=== PATIENT | male | born 1970 | race Caucasian/White ===

== ENCOUNTER 2016-12-02 12:58 | Emergency (ER) | payer MEDICARE ==
[~2016-12-02] VITALS: Ht 175.3 cm; Wt 133.8 kg
[~2016-12-02 12:58] MED LIST: AZIT250T81 PO; AZTH250C PO; BENZ200C25 PO; CPR500T PO; CRESTOR40 MG PO; FENO145T2 PO; GEMF600T3; HALO5TAB17; HALO5TAB17 PO; HYDR-707 PO; LISI10TA; LNS30CCR PO; METF500T8 PO; MTF500T; NF-ESOM40C PO; OMEP-10; ONDA4TAB11 PO; ONDN4T PO; PRD20T PO; PRM25T PO; RISP3TAB17 PO; ROSU20TA14 PO; percocet PO
--- OUTSIDE RECORDS SUMMARY | 2016-12-02 13:04 | XMS REPORT | Continuity of Care Document ---
Author Author [facility] Organization [facility] Address Unknown Phone Unavailable Allergies Active Description Code Type Severity Reaction Onset Reported/Identified Relationship to Patient Clinical Status Yes NKANo Known Allergies NKA Miscellaneous Allergy Mild N/A 01/08/2010 Medications Problems Date Dx Coded Attending Type Code Diagnosis Diagnosed By 10/03/2014 PEPE WELCH, GLENROY Hodge Ot 490 10/03/2014 GLENROY CANTU MD Ot 786.05 Procedures Results Encounters ACCT No. Visit Date/Time Discharge Status Pt. Type Provider Facility Loc./Unit Complaint [id number] 10/03/2014 21:56:00 2013 23:26:00 DIS Emergency GLENROY CANTU MD [facility] ER [id number] 01/07/2014 02:21:00 2013 03:29:00 DIS Emergency [id number] 05/28/2013 13:51:00 2012 14:55:00 DIS Emergency
--- NOTE | 2016-12-02 14:01 | ED Lower Extremity ---
General Chief Complaint: Lower Extremity Stated Complaint: R ANKLE INJ Nursing Triage Note: AMB TO ROOM REPORTS GOT UP OUT OF CHAIR ON SUNDAY NIGHT AND FOOT WAS ASLEEP AND TWISED ANKLE. Nursing Sepsis Screen: No Definite Risk Source: patient Exam Limitations: no limitations History of Present Illness Time seen by provider: 14:00 Initial Comments To ER with reports of right lateral ankle pain. This began last night after he was on the bed helping his do something. He then stepped down inverting the right ankle. Pain is over the lateral malleolus. No other injuries. He's been weightbearing since the event. Onset: just prior to arrival Severity: moderate Pain/Injury Location: right ankle Method of Injury: twisted Modifying Factors: Worse With Movement Allergies and Home Medications Allergies Coded Allergies: SILVANAANo Known Allergies (Unverified Allergy, Mild, 01/08/10) Home Medications Azithromycin 250 Mg Tablet 4Days 250 MG PO DAILY Prescribed by: GLENROY BALDERAS on 10/03/14 2323 Benzonatate 200 Mg Capsule #20 1 EACH PO TID PRN PRN COUGH Prescribed by: GLENROY BALDERAS on 10/03/14 2316 Esomeprazole Mag Trihydrate 40 Mg Capsule.dr 1 CAP PO DAILY (Reported) Haloperidol 5 Mg Tab 10 MG PO HS (Reported) Prednisone 20 Mg Tab #5 20 MG PO DAILY Prescribed by: GLENROY BALDERAS on 10/03/14 2314 Risperidone 3 Mg Tablet 3 MG PO BID (Reported) Rosuvastatin Calcium 40 Mg Tablet 40 MG PO HS (Reported) Constitutional: see HPI EENTM: see HPI Respiratory: no symptoms reported Cardiovascular: no symptoms reported Genitourinary: no symptoms reported Musculoskeletal: no symptoms reported Skin: no symptoms reported Psychiatric/Neurological: No Symptoms Reported Past Pukitzm-Hvbhsm-Aslkhl Hx Patient Social History Alcohol Use: Denies Use Recreational Drug Use: No (QUIT SMOKING 2 MOS AGO) Smoking Status: Former Smoker Recent Foreign Travel: No Contact w/Someone Who Travel: No Recent Infectious Disease Expo: No Recent Hopitalizations: Yes Immunizations Up To Date Date of Pneumonia Vaccine: Jul 15, 2011 Date of Influenza Vaccine: Jul 15, 2011 Surgeries HX Surgeries: Yes Surgeries: Gallbladder Respiratory Hx Respiratory Disorders: No Cardiovascular Hx Cardiac Disorders: Yes Cardiac Disorders: High Cholesterol Neurological Hx Neurological Disorders: No Reproductive System Hx Reproductive Disorders: No Sexually Transmitted Disease: No Genitourinary Hx Genitourinary Disorders: No Gastrointestinal Hx Gastrointestinal Disorders: No Gastrointestinal Disorders: Pancreatitis, Gall Bladder Disease Musculoskeletal Hx Musculoskeletal Disorders: No Endocrine Hx Endocrine Disorders: No HEENT HX ENT Disorders: No Cancer Hx Cancer: No Psychosocial Hx Psychiatric Problems: Yes Behavioral Health Disorders: Schizophrenia Integumentary HX Skin/Integumentary Disorder: No Blood Transfusions Hx Blood Disorders: No Physical Exam Vital Signs Vital Sign - Last 12Hours 12/02/16 13:12 Temp 98.9 B/P 138/70 Pulse Ox 96 O2 Delivery Room Air Capillary Refill : Less Than 3 Seconds General Appearance: WD/WN no apparent distress HEENT: PERRL/EOMI normal ENT inspection Neck: non-tender full range of motion Respiratory: no respiratory distress no accessory muscle use Gastrointestinal: normal bowel sounds non tender soft Hips: bilateral hip non-tender, bilateral hip normal inspection, bilateral hip normal range of motion Legs: bilateral leg non-tender, bilateral leg normal inspection, bilateral leg normal range of motion Knees: bilateral knee non-tender, bilateral knee normal inspection, bilateral knee normal range of motion Ankles: right ankle soft tissue tenderness, right ankle swelling, right ankle other (distal sensation is intact. Capillary refill of the toes is 3seconds) Neurologic/Tendon: normal sensation normal motor functions Neurologic/Psychiatric: alert normal mood/affect oriented x 3 Skin: normal color warm/dry Progress/Results/Core Measures Results/Orders Vital Signs/I&O Vital Sign - Last 12Hours 12/02/16 13:12 Temp 98.9 B/P 138/70 Pulse Ox 96 O2 Delivery Room Air Blood Pressure Mean: 92 Diagnostic Imaging Diagonstic Imaging: Xray Comments NAME: MARIE BRADFORD Delroy [facility] REC#: [id number] PT STATUS: REG ER : 1970 PHYSICIAN: MONIK DUCKWORTH MD ADMIT DATE: 12/02/16/ER Draft Date of Exam:12/02/16 ANKLE, RIGHT, 3 VIEWS EXAMINATION: Right ankle INDICATION: Ankle pain 3 views were obtained. There is a small 4 MM calcific density in the soft tissues adjacent to the inferior margin of the lateral malleolus of the distal fibula. There is soft tissue edema in this region and I suspect that this calcific density does represent a small acute avulsion fracture. No other fracture or acute bony abnormality is identified. The ankle mortise is not widened and the talar dome is smooth. IMPRESSION: 1. The findings do suggest a small acute avulsion fracture from the inferior margin of the lateral malleolus. There is also associated soft tissue edema in this area. 2. There is no acute bony abnormality noted otherwise. Dictated on workstation # [id number] Dict: 12/02/16 1355 Trans: 12/02/16 1401 [facility] [id number] Interpreted by: LAMIN SEGURA MD Electronically signed by: Departure Impression Impression: Primary Impression: Avulsion fracture of ankle Qualified Code: S82.891A - Other fracture of right lower leg, initial encounter for closed fracture Disposition: HOME, SELF-CARE Condition: Stable Departure-Patient Inst. Decision time for Depature: 14:03 Referrals: PAULA PEREA MD, RICHARD A DO (PCP/Family) Primary Care Physician CORI L[address] JONATHAN MD IPSEN,LALITO NUNES,PANKAJ LEYVA MD,MARIA GUADALUPE Owen MD Patient Instructions: Ankle Sprain Add. Discharge Instructions: 1. Return to ER for any concerns 2. Keep foot elevated as much as possible for the next 24-48 hours as this will help with the swelling 3. Any time that you're up moving around except when you're in the shower he should have the walking boot on. All discharge instructions reviewed with patient and/or family. Voiced understanding. Scripts Hydrocodone/Acetaminophen ([place]ons 5-325 Tablet)1 Each Tablet1 Each PO Q6H #10 TAB Prov:WALTER DIAZ APRN 12/02/16 WALTER DIAZ APRN Dec 02, 2016 14:01
[2016-12-02] MEDS ORDERED: HYDR-757 PO (14:04)
[2016-12-02 14:40] VITALS: BP 138/70
== END 2016-12-02 14:38 | disposition home or self-care (01) ==
LOC: EDUNIT# 12:58 → ER 13:00
DX: S82.61XA Displaced fracture of lateral malleolus of right fibula, initial encounter for closed fracture (principal); X50.9XXA Other and unspecified overexertion or strenuous movements or postures, initial encounter; Y92.013 Bedroom of single-family (private) house as the place of occurrence of the external cause; Y99.8 Other external cause status
CPT/HCPCS: 73610; 99283

== ENCOUNTER 2019-05-28 00:41 | Emergency (ER) | payer MEDICARE ==
[~2019-05-28] VITALS: Ht 175.3 cm; Wt 98.4 kg
[~2019-05-28 00:41] MED LIST changes: +HYDR-4226 PO
[2019-05-28] MEDS ORDERED: IBUPROFEN 800 MG (MOTRIN) TAB PO ONE (02:15)
[2019-05-28] MEDS ORDERED: LIDOCAINE 2% VISCOUS 15 ML UDC PO ONE (02:15)
[2019-05-28] MEDS ORDERED: AMOX500C2 PO (02:16)
--- NOTE | 2019-05-28 02:17 | ED EENT ---
History of Present Illness General Stated Complaint: TOOTH PAIN Source: patient Exam Limitations: no limitations History of Present Illness Date Seen by Provider: May 28, 2019 Time Seen by Provider: 02:02 Initial Comments Patient is a very pleasant gentleman who presents by private conveyance with chief complaint of some acute pain in his left lower molars. He says this happens about every 6 months and he'll go to Dr. Elise and get some antibiotics which will make it feel better. He has not tried any topical creams gels, Tylenol or Motrin. He would like some ibuprofen. He uses INTTRA. No history of heart disease. No discharge or swelling in the jaw. No fevers or nausea. Allergies and Home Medications Allergies Coded Allergies: Amy Known Allergies (Unverified Allergy, Mild, 01/08/10) Home Medications Azithromycin 250 Mg Tablet, 250 MG PO DAILY Prescribed by: GLENROY BALDERAS on 10/03/14 2323 Benzonatate 200 Mg Capsule, 1 EACH PO TID PRN for COUGH Prescribed by: GLENROY BALDERAS on 10/03/14 2316 Esomeprazole Mag Trihydrate 40 Mg Capsule.dr, 1 CAP PO DAILY, (Reported) Haloperidol 5 Mg Tab, 10 MG PO HS, (Reported) Hydrocodone/Acetaminophen 1 Each Tablet, 1 EACH PO Q6H Prescribed by: WALTER DIAZ on 12/02/16 1404 Prednisone 20 Mg Tab, 20 MG PO DAILY Prescribed by: GLENROY BALDERAS on 10/03/14 2314 Risperidone 3 Mg Tablet, 3 MG PO BID, (Reported) Rosuvastatin Calcium 40 Mg Tablet, 40 MG PO HS, (Reported) Patient Home Medication List Home Medication List Reviewed: Yes Review of Systems Review of Systems Constitutional: No chills, No diaphoresis Eyes: Denies Blindness, Denies Blurred Vision Ears: Denies Dizziness, Denies Pain Nose: denies clots, denies congestion Mouth: see HPI, pain; denies swelling, denies bloody discharge, denies purulent discharge Past Tfusatk-Sjvzdo-Rqeuvu Hx Patient Social History Alcohol Use: Denies Use Recreational Drug Use: No Smoking Status: Current Everyday Smoker Recent Foreign Travel: No Contact w/Someone Who Travel: No Recent Hopitalizations: Yes Immunizations Up To Date Date of Pneumonia Vaccine: Jul 15, 2011 Date of Influenza Vaccine: Jul 15, 2011 Past Medical History Gallbladder High Cholesterol Reproductive Disorders: No Sexually Transmitted Disease: No Pancreatitis, Gall Bladder Disease Schizophrenia Physical Exam Height, Weight, BMI Height: 5'9" Weight: 295lbs. oz. 133.605777zz; BMI Method:Stated General Appearance: WD/WN, no apparent distress Eyes: bilateral eye normal inspection, bilateral eye PERRL, bilateral eye EOMI Ears: bilateral ear auricle normal, bilateral ear canal normal Nose: normal inspection; No active bleeding Mouth/Throat: dental tenderness, other (Advanced dental caries especially in the molars bilaterally. No erythema or swelling or fluctuance palpable. Tenderness over the left lower molars.) Neck: non-tender, full range of motion, supple, normal inspection Progress/Results/Core Measures Progress Progress Note : Time: 02:14 Progress Note Topical viscous lidocaine, offered him ibuprofen or Toradol shows ibuprofen. We'll put him on amoxicillin with follow-up with dentistry. Departure Impression Primary Impression: Pain due to dental caries Disposition: HOME, SELF-CARE Condition: Stable Departure-Patient Inst. Decision time for Depature: 02:14 Referrals: BHUPENRDA ELISE DO (PCP/Family) Primary Care Physician Patient Instructions: Tooth Decay, Adult (DC), Dental Pain Add. Discharge Instructions: Plan to follow up with a dentist. 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 Usually expect to see improvement in 3 days. Use the Orajel or viscous lidocaine provided applied directly over the tooth every 2-4 hours as needed for pain. Heating pads applied to the job can be helpful. Tylenol 1000 mg every 8 hours as needed for pain. Ibuprofen 800 mg every 8 hours as needed for pain. Scripts Amoxicillin (Amoxicillin) 500 Mg Capsule 500 MG PO TID for 7 Days, #21 CAP 0 Refills Prov: MURPHY TODD 05/28/19 MURPHY TODD May 28, 2019 02:17
[2019-05-28 02:25] VITALS: BP 122/79
== END 2019-05-28 02:35 | disposition home or self-care (01) ==
LOC: EDUNIT# 00:41 → ER 00:45
DX: K02.9 Dental caries, unspecified (principal); E78.00 Pure hypercholesterolemia, unspecified; F20.9 Schizophrenia, unspecified; F17.200 Nicotine dependence, unspecified, uncomplicated; Z79.52 Long term (current) use of systemic steroids
CPT/HCPCS: 99283

== ENCOUNTER 2019-08-21 18:58 | Emergency (ER) | payer MEDICARE ==
[~2019-08-21] VITALS: Ht 175 cm; Wt 98.6 kg
[~2019-08-21 18:58] MED LIST changes: +AMOX500C2 PO
[2019-08-21 19:37] LABS: BASOPHILS # (AUTO) 0.1 10^3/uL (0.0-0.1); BASOPHILS % (AUTO) 1 % (0-10); EOSINOPHILS # (AUTO) 0.1 10^3/uL (0.0-0.3); EOSINOPHILS % (AUTO) 2 % (0-10); HEMATOCRIT 43 % (40-54); HEMOGLOBIN 14.9 G/DL (13.3-17.7); LYMPHOCYTES # (AUTO) 2.5 X 10^3 (1.0-4.0); LYMPHOCYTES % (AUTO) 29 % (12-44); MEAN CORPUSCULAR HEMOGLOBIN 34 PG (25-34); MEAN CORPUSCULAR HGB CONC 35 G/DL (32-36); MEAN CORPUSCULAR VOLUME 98 FL (80-99); MEAN PLATELET VOLUME 9.2 FL (7.4-10.4); MONOCYTES % (AUTO) 12 % (0-12); NEUTROPHILS # (AUTO) 4.9 X 10^3 (1.8-7.8); NEUTROPHILS % (AUTO) 57 % (42-75); PLATELET COUNT 166 10^3/uL (130-400); RED CELL DISTRIBUTION WIDTH 14.4 % (10.0-14.5); WHITE BLOOD COUNT 8.6 10^3/uL (4.3-11.0)
[2019-08-21 19:38] LABS: BILIRUBIN,URINE NEGATIVE (NEGATIVE); CLARITY,URINE CLEAR; COLOR,URINE YELLOW; GLUCOSE, URINE (UA) NEGATIVE (NEGATIVE); KETONES,URINE NEGATIVE (NEGATIVE); LEUKOCYTE ESTERASE ,URINE NEGATIVE (NEGATIVE); NITRITE,URINE NEGATIVE (NEGATIVE); PROTEIN,URINE NEGATIVE (NEGATIVE)
--- NOTE | 2019-08-21 19:39 | ED Abdominal Pain ---
General Chief Complaint: Abdominal/GI Problems Stated Complaint: L SIDE ABD PAIN Nursing Triage Note: Pt ambulates to RM 5 with c/o LLQ abd pain, intermittent x 2 days. Pt states his last BM was 2 days ago. Pt reports no new med changes besides taking PNC x 2 days for a tooth infection. Pt denies any N/V or any changes in appetite. Pt states he hasn't taken anything for pain or constipation. 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 ELISE FOR A DENTAL INFECTION--HAS NOT ATTEMPTED TO SEE DENTIST. PCP: DR. ELISE Allergies and Home Medications Allergies Coded Allergies: Amy Known Allergies (Unverified Allergy, Mild, 01/08/10) Home Medications Amoxicillin 500 Mg Capsule, 500 MG PO TID Prescribed by: MURPHY TODD on 05/28/19 0216 Azithromycin 250 Mg Tablet, 250 MG PO DAILY Prescribed by: GLENROY BALDERAS on 10/03/14 2323 Benzonatate 200 Mg Capsule, 1 EACH PO TID PRN for COUGH Prescribed by: GLENROY BALDERAS on 10/03/14 2316 Esomeprazole Mag Trihydrate 40 Mg Capsule., 1 CAP PO DAILY, (Reported) Haloperidol 5 Mg Tab, 10 MG PO HS, (Reported) Hydrocodone/Acetaminophen 1 Each Tablet, 1 EACH PO Q6H Prescribed by: WALTER DIAZ on 12/02/16 1404 Prednisone 20 Mg Tab, 20 MG PO DAILY Prescribed by: GLENROY BALDERAS on 10/03/14 2314 Risperidone 3 Mg Tablet, 3 MG PO BID, (Reported) Rosuvastatin Calcium 40 Mg Tablet, 40 MG PO HS, (Reported) Patient Home Medication List Home Medication List Reviewed: Yes Review of Systems Review of Systems Constitutional: no symptoms reported EENTM: See HPI Respiratory: No Symptoms Reported Cardiovascular: No Symptoms Reported Gastrointestinal: See HPI, Abdominal Pain, Constipated; Denies Diarrhea, Denies Nausea, Denies Poor Appetite, Denies Poor Fluid Intake, Denies Vomiting Genitourinary: No Symptoms Reported Musculoskeletal: no symptoms reported; No back pain Skin: no symptoms reported Psychiatric/Neurological: No Symptoms Reported Endocrine: No Symptoms Reported Hematologic/Lymphatic: No Symptoms Reported Past Sznsrhu-Hsyfry-Nafaal Hx Patient Social History Alcohol Use: Denies Use Recreational Drug Use: No Smoking Status: Current Everyday Smoker (1 PPD) Type Used: Cigarettes Recent Foreign Travel: No Contact w/Someone Who Travel: No Recent Infectious Disease Expo: No Recent Hopitalizations: No Physical Abuse: No Sexual Abuse: No Mistreated: No Fear: No Immunizations Up To Date Date of Pneumonia Vaccine: Jul 15, 2011 Date of Influenza Vaccine: Jul 15, 2011 Past Medical History Surgeries: Yes Gallbladder, Tonsillectomy Respiratory: No Cardiac: Yes High Cholesterol Neurological: No Reproductive Disorders: No Sexually Transmitted Disease: No Genitourinary: No Gastrointestinal: Yes (S/P WICHO) Pancreatitis, Gall Bladder Disease Musculoskeletal: No Endocrine: No HEENT: Yes (CHRONIC DENTAL PROBLEMS) Cancer: No Psychosocial: Yes Schizophrenia Integumentary: No Blood Disorders: No Physical Exam Vital Signs Vital Signs - First Documented 08/21/19 19:12 Temp 36.7 Pulse 91 Resp 17 B/P (MAP) 125/84 (98) Pulse Ox 99 O2 Delivery Room Air Capillary Refill : Less Than 3 Seconds Height/Weight/BMI Height: 5'9" Weight: 217lbs. oz. 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, no motor/sensory deficits, alert, normal mood/affect, oriented x 3, other (APPEARS TO BE SOMEWHAT MENTALLY CHALLENGED) Skin: normal color, warm/dry; No rash Progress/Results/Core Measures Results/Orders Lab Results Laboratory Tests Test 08/21/19 19:25 08/21/19 19:30 Range/Units Urine Color YELLOW Urine Clarity CLEAR Urine pH 6.0 5-9 Urine Specific [place] 1.015 L 1.016-1.022 Urine Protein NEGATIVE NEGATIVE Urine Glucose (UA) NEGATIVE NEGATIVE Urine Ketones NEGATIVE NEGATIVE Urine Nitrite NEGATIVE NEGATIVE Urine Bilirubin NEGATIVE NEGATIVE Urine Urobilinogen 1.0 < = 1.0 MG/DL Urine Leukocyte Esterase NEGATIVE NEGATIVE Urine RBC (Auto) NEGATIVE NEGATIVE Urine RBC NONE /HPF Urine WBC NONE /HPF Urine Squamous Epithelial Cells RARE /HPF Urine Crystals NONE /LPF Urine Bacteria NEGATIVE /HPF Urine Casts NONE /LPF Urine Mucus NEGATIVE /LPF Urine Culture Indicated NO White Blood Count 8.6 4.3-11.0 10^3/uL Red Blood Count 4.35 4.35-5.85 10^6/uL Hemoglobin 14.9 13.3-17.7 G/DL Hematocrit 43 40-54 % Mean Corpuscular Volume 98 80-99 FL Mean Corpuscular Hemoglobin 34 25-34 PG Mean Corpuscular Hemoglobin Concent 35 32-36 G/DL Red Cell Distribution Width 14.4 10.0-14.5 % Platelet Count 166 130-400 10^3/uL Mean Platelet Volume 9.2 7.4-10.4 FL Neutrophils (%) (Auto) 57 42-75 % Lymphocytes (%) (Auto) 29 12-44 % Monocytes (%) (Auto) 12 0-12 % Eosinophils (%) (Auto) 2 0-10 % Basophils (%) (Auto) 1 0-10 % Neutrophils # (Auto) 4.9 1.8-7.8 X 10^3 Lymphocytes # (Auto) 2.5 1.0-4.0 X 10^3 Monocytes # (Auto) 1.0 0.0-1.0 X 10^3 Eosinophils # (Auto) 0.1 0.0-0.3 10^3/uL Basophils # (Auto) 0.1 0.0-0.1 10^3/uL Sodium Level 138 135-145 MMOL/L Potassium Level 3.7 3.6-5.0 MMOL/L Chloride Level 103 98-107 MMOL/L Carbon Dioxide Level 22 21-32 MMOL/L Anion Gap 13 5-14 MMOL/L Blood Urea Nitrogen 6 L 7-18 MG/DL Creatinine 1.09 0.60-1.30 MG/DL Estimat Glomerular Filtration Rate > 60 BUN/Creatinine Ratio 6 Glucose Level 106 H 70-105 MG/DL Calcium Level 9.6 8.5-10.1 MG/DL Corrected Calcium 8.5-10.1 MG/DL Total Bilirubin 0.7 0.1-1.0 MG/DL Aspartate Amino Transf (AST/SGOT) 10 5-34 U/L Alanine Aminotransferase (ALT/SGPT) 14 0-55 U/L Alkaline Phosphatase 83 40-136 U/L Total Protein 8.0 6.4-8.2 GM/DL Albumin 4.7 H 3.2-4.5 GM/DL Amylase Level 117 25-125 U/L Lipase 33 8-78 U/L My Orders Orders - GONZALO VANEGAS DO Ed Iv/Invasive Line Start (08/21/19 19:27) Amylase (08/21/19 19:27) Cbc With Automated Diff (08/21/19:) Comprehensive Metabolic Panel (08/21/19 19:) Lipase (08/21/19 19:) Ua Culture If Indicated (08/21/19:) Ketorolac Injection (Toradol Injection) (08/21/19 20:02) Ed Iv/Invasive Line Start (08/21/19 20:02) Lactated Ringers (Lr 1000 Ml Iv Solution (08/21/19 20:02) Ct Abdomen/Pelvis W (08/21/19 20:02) Acute Abd Series (08/21/19 20:02) Iohexol Injection (Omnipaque 350 Mg/Ml 1 (08/21/19 20:15) Received Contrast (Hold Metformin- Contr (08/21/19 20:15) Sodium Chloride Flush (Catheter Flush Sy (08/21/19 20:15) Ns (Ivpb) (Sodium Chloride 0.9% Ivpb Bag (08/21/19 20:15) Medications Given in ED Current Medications Medications Dose Ordered Sig/Vj Route Start Time Stop Time Status Last Admin Dose Admin Iohexol 100 ml ONCE ONCE IV 08/21/19 20:15 08/21/19 20:16 DC 08/21/19 20:26 100 ML Lactated Ringer's 1,000 ml @ 0 mls/hr Q0M ONCE IV 08/21/19 20:02 08/21/19 20:04 DC 08/21/19 20:40 0 MLS/HR Sodium Chloride 10 ml NEEDED PRN IV 08/21/19 20:15 08/21/19 20:26 10 ML Sodium Chloride 100 ml ONCE ONCE IV 08/21/19 20:15 08/21/19 20:16 DC 08/21/19 20:26 80 ML Vital Signs/I&O 08/21/19 19:12 Temp 36.7 Pulse 91 Resp 17 B/P (MAP) 125/84 (98) Pulse Ox 99 O2 Delivery Room Air Blood Pressure Mean: 98 POS Progress Progress Note : Progress Note GIVEN IV FLUIDS AND TORADOL--STATES HE FEELS ALOT BETTER Diagnostic Imaging Comments ABDOMEN XRAYS--NO ACUTE PROCESS CT ABDOMEN/PELVIS--NO ACUTE PROCESS PER RADIOLOGIST REPORTS AT 3 Reviewed: Reviewed by Me Departure Impression Primary Impression: RLQ abdominal pain Additional Impression: Constipation Disposition: 01 HOME, SELF-CARE Condition: Stable Departure-Patient Inst. Referrals: BHUPENDRA ELISE DO (PCP/Family) Primary Care Physician Patient Instructions: Acute Abdomen (Belly Pain), Adult (DC), Constipation, Adriel lt (DC) Add. Discharge Instructions: CLEAR LIQUIDS--WATER, BROTH, JELLO, GATORADE NO FOOD UNTIL YOUR PAIN IS GONE AND YOU HAVE HAD A BM TAKE MIRALAX EVERY 4 HOURS UNTIL YOU HAVE A BM FOLLOW UP WITH DR. ELISE IN 2-3 DAYS IF NO BETTER, RETURN TO ER IF WORSE All discharge instructions reviewed with patient and/or family. Voiced understanding. Scripts Ketorolac Tromethamine (Ketorolac Tromethamine) 10 Mg Tablet 10 MG PO Q6H for Pain, #15 TAB Prov: GONZALO VANEGAS DO 08/21/19 Hyoscyamine Sulfate (Levsin-Sl) 0.125 Mg Tab.subl 1-2 TAB SL Q4H for Abdominal Pain, #10 TAB Prov: GONZALO VANEGAS DO 08/21/19 GONZALO VANEGAS DO Aug 21, 2019 19:38 POS
[2019-08-21 19:46] LABS: BACTERIA,URINE NEGATIVE /HPF; SQUAMOUS EPITHELIAL CELL,UR RARE /HPF
[2019-08-21 19:57] LABS: ALANINE AMINOTRANSFERASE 14 U/L (0-55); ALKALINE PHOSPHATASE 83 U/L (40-136); BILIRUBIN,TOTAL 0.7 MG/DL (0.1-1.0); BUN/CREATININE RATIO 6; CALCIUM 9.6 MG/DL (8.5-10.1); CARBON DIOXIDE 22 MMOL/L (21-32); CREATININE SERUM 1.09 MG/DL (0.60-1.30); GFR ESTIMATED > 60; GLUCOSE 106 MG/DL (70-105)
[2019-08-21 19:58] LABS: ALBUMIN 4.7 GM/DL (3.2-4.5); AMYLASE 117 U/L (25-125); LIPASE 33 U/L (8-78)
[2019-08-21] MEDS ORDERED: LACTATED RINGERS 1,000 ML IV ONE (20:02)
[2019-08-21] MEDS ORDERED: KETOROLAC 30 MG/ML VIAL IVP STA (20:02)
[2019-08-21] MEDS ORDERED: CATHETER FLUSH 10 ML SYR IV PRN (20:15)
[2019-08-21] MEDS ORDERED: HOLD METFORMIN - RECEIVED CONTRAST 20 ML VIAL IV SCH (20:15)
[2019-08-21] MEDS ORDERED: IOHEXOL 350 MG/ML 100 ML (OMNIPAQUE 350) VIAL IV ONE (20:15)
[2019-08-21] MEDS ORDERED: NS 100 ML (IVPB) BAG IV ONE (20:15)
[2019-08-21 20:25] LABS: CHLORIDE 103 MMOL/L (98-107); POTASSIUM 3.7 MMOL/L (3.6-5.0); SODIUM 138 MMOL/L (135-145)
--- NOTE | 2019-08-21 20:51 | Diagnostic Imaging Report ---
PROCEDURE: CT abdomen and pelvis with contrast. TECHNIQUE: Multiple contiguous axial images were obtained through the abdomen and pelvis after administration of intravenous contrast. Auto Exposure Controls were utilized during the CT exam to meet ALARA standards for radiation dose reduction. INDICATION: Left lower quadrant pain for two days. COMPARISON: 05/10/2007. FINDINGS: The heart is unremarkable. The included lung bases are clear. The liver, spleen, pancreas, adrenal glands and kidneys have a normal appearance. The gallbladder is surgically absent. There is no pathologically enlarged mesenteric or retroperitoneal adenopathy. The bowel loops are nondilated. The appendix is visualized in the right lower quadrant and has a normal appearance.. There is no free fluid or free air. The osseous structures are age-appropriate. There is calcified aortic and iliac atherosclerotic plaque without evidence of aneurysm. Ureters and bladder are grossly normal. There is no free air, loculated collection, or adenopathy in the pelvis. IMPRESSION: No acute abnormality in the abdomen and pelvis. Dictated by: Dictated on workstation # [id number]
--- NOTE | 2019-08-21 20:59 | Diagnostic Imaging Report ---
Patient History: Left lower quadrant abdominal pain. Technique: 4 views of the chest and abdomen Comparison: 10/03/2014 FINDINGS: The lung volumes are normal. No focal consolidation is seen. No large pleural effusion or pneumothorax is seen. The cardiomediastinal silhouette is normal in size and contour. No acute osseous abnormality is seen. The bowel gas pattern is nondistended. No large collection of free intraperitoneal air is seen. Scattered small amounts of gas and fecal material are present in the colon. No abnormal extraosseous calcifications are present. The osseous structures are age-appropriate. IMPRESSION: 1. No acute pleuroparenchymal process. 2. No evidence of bowel obstruction or large collections of free intraperitoneal air. Dictated by: Dictated on workstation # [id number]
[2019-08-21] MEDS ORDERED: KETO10TA PO (21:15)
[2019-08-21] MEDS ORDERED: HYOS0.1283 SL (21:15)
[2019-08-21 21:31] VITALS: BP 128/82
== END 2019-08-21 21:32 | disposition home or self-care (01) ==
LOC: EDUNIT# 18:58 → ER 18:59
DX: K59.00 Constipation, unspecified (principal); E78.00 Pure hypercholesterolemia, unspecified; F20.9 Schizophrenia, unspecified; F17.210 Nicotine dependence, cigarettes, uncomplicated; Z79.52 Long term (current) use of systemic steroids; Z87.19 Personal history of other diseases of the digestive system; Z90.89 Acquired absence of other organs; Z90.49 Acquired absence of other specified parts of digestive tract
CPT/HCPCS: 36415; 74022; 74177; 80053; 81000; 82150; 83690; 85025; 96361; 96374

== ENCOUNTER 2021-01-29 22:22 | Emergency (ER) | payer MEDICARE ==
[~2021-01-29] VITALS: Ht 175.6 cm; Wt 99.7 kg
[~2021-01-29 22:22] MED LIST changes: +HYOS0.1283 SL; +KETO10TA PO
[2021-01-29] MEDS ORDERED: RX-NAPROXEN (NAPROSYN) 250 MG TAB PPK#4 PO STA (23:02)
[2021-01-29] MEDS ORDERED: RX-AMOXICILLIN 500 MG CAP #3 PPK PO STA (23:02)
[2021-01-29] MEDS ORDERED: LIDO20SO23 MM (23:05)
[2021-01-29] MEDS ORDERED: AMOX875T2 PO (23:05)
[2021-01-29] MEDS ORDERED: NAPR500T8 PO (23:05)
--- NOTE | 2021-01-29 23:05 | ED EENT ---
History of Present Illness General Chief Complaint: Dental Problems/Pain Stated Complaint: TOOTH PAIN;NAUSEA Nursing Triage Note: PRESENTS TO THE ED THIS EVENING C/O DENTAL PAIN IN HIS RIGHT LOWER JAW. VERBALIZES HE TOOK TYLENOL 1000MG AT 1700 THIS EVENIG WITH NO PAIN RELIEF. RATES RAVIN AT A 9/10 ON PAIN SCALE. ALERT AND ORIENTED X4, CALL LIGHT IN REACH. Source: patient History of Present Illness Date Seen by Provider: Jan 29, 2021 Time Seen by Provider: 22:53 Allergies and Home Medications Allergies Coded Allergies: NKANo Known Allergies (Unverified Allergy, Mild, 01/08/10) Home Medications Amoxicillin 500 Mg Capsule, 500 MG PO TID Prescribed by: MURPHY TODD on 05/28/196 Amoxicillin 875 Mg Tablet, 875 MG PO BID Prescribed by: GONZALO VANEGAS on 01/29/212304 Azithromycin 250 Mg Tablet, 250 MG PO DAILY Prescribed by: GLENROY BALDERAS on 10/03/14 232 Benzonatate 200 Mg Capsule, 1 EACH PO TID PRN for COUGH Prescribed by: GLENROY BALDERAS on 10/03/14 231 Esomeprazole Mag Trihydrate 40 Mg Capsule.dr, 1 CAP PO DAILY, (Reported) Haloperidol 5 Mg Tab, 10 MG PO HS, (Reported) Hydrocodone/Acetaminophen 1 Each Tablet, 1 EACH PO Q6H Prescribed by: WALTER DIAZ on 12/02/16 140 Hyoscyamine Sulfate 0.125 Mg Tab.subl, 1-2 TAB SL Q4H Prescribed by: GONZALO VANEGAS on 08/21/192114 Ketorolac Tromethamine 10 Mg Tablet, 10 MG PO Q6H Prescribed by: GONZALO VANEGAS on 08/21/192114 Lidocaine HCl 15 Ml Solution, 1-2 ML MM [id number] Prescribed by: GONZALO VANEGAS on 01/29/212304 Naproxen 500 Mg Tablet.dr, 500 MG PO BID Prescribed by: GONZALO VANEGAS on 01/29/212304 Prednisone 20 Mg Tab, 20 MG PO DAILY Prescribed by: GLENROY BALDERAS on 10/03/142313 Risperidone 3 Mg Tablet, 3 MG PO BID, (Reported) Rosuvastatin Calcium 40 Mg Tablet, 40 MG PO HS, (Reported) Past Kddryfi-Ftkrkz-Zdsxwk Hx Patient Social History Type Used: Cigarettes Recent Infectious Disease Expo: No Recent Hopitalizations: No Immunizations Up To Date Date of Pneumonia Vaccine: Jul 15, 2011 Date of Influenza Vaccine: Jul 15, 2011 Past Medical History Surgeries: Yes Gallbladder, Tonsillectomy Respiratory: No Cardiac: Yes High Cholesterol Neurological: No Reproductive Disorders: No Sexually Transmitted Disease: No Genitourinary: No Gastrointestinal: Yes (S/P WICHO) Pancreatitis, Gall Bladder Disease Musculoskeletal: No Endocrine: No HEENT: Yes (CHRONIC DENTAL PROBLEMS) Cancer: No Psychosocial: Yes Schizophrenia Integumentary: No Blood Disorders: No Physical Exam Vital Signs Vital Signs - First Documented 01/29/21 22:48 Temp 36.2 Pulse 100 Resp 18 B/P (MAP) 120/82 (95) Pulse Ox 96 O2 Delivery Room Air Height, Weight, BMI Height: 5'9" Weight: 217lbs. oz. 98.955303av; 32.00 BMI Method:Stated Progress/Results/Core Measures Results/Orders My Orders Vital Signs/I&O Blood Pressure Mean: 95 Departure Impression Primary Impression: Dental caries Additional Impression: Dental infection Disposition: 01 HOME, SELF-CARE Condition: Stable Departure-Patient Inst. Referrals: BHUPENDRA ELISE DO (PCP/Family) Primary Care Physician Patient Instructions: Tooth Decay, Adult (DC), Tooth Abscess (DC) Add. Discharge Instructions: FREQUENT SALT WATER SWISHES TYLENOL 1 GRAM EVERY 6 HOURS NEEDED FOR PAIN FOLLOW UP WITH DENTIST OF CHOICE SOON POSSIBLE--CALL ON SUNDAY TO SCHEDULE AN APPOINTMENT All discharge instructions reviewed with patient and/or family. Voiced understanding. Scripts Lidocaine HCl (Lidocaine HCl Viscous) 15 Ml Solution 1-2 ML MM [id number], #120 ML Prov: GONZALO VANEGAS DO 01/29/21 Naproxen (Naproxen) 500 Mg Tablet.dr 500 MG PO BID, #20 TAB Prov: GONZALO VANEGAS DO 01/29/21 Amoxicillin (Amoxicillin) 875 Mg Tablet 875 MG PO BID, #20 TAB Prov: GONZLAO VANEGAS DO 01/29/21 GONZALO VANEGAS DO Jan 29, 2021 23:05
[2021-01-29] MEDS ORDERED: LIDOCAINE 2% VISCOUS 15 ML UDC MM ONE (23:15)
[2021-01-29 23:17] VITALS: BP 122/84
== END 2021-01-29 23:17 | disposition home or self-care (01) ==
LOC: EDUNIT# 22:22 → ER 22:23
DX: K02.9 Dental caries, unspecified (principal); K04.7 Periapical abscess without sinus; E78.00 Pure hypercholesterolemia, unspecified; F20.9 Schizophrenia, unspecified; Z79.899 Other long term (current) drug therapy; Z79.52 Long term (current) use of systemic steroids
CPT/HCPCS: 99283

== ENCOUNTER 2021-12-31 20:21 | Emergency (ER) | payer MEDICARE ==
[~2021-12-31] VITALS: Ht 175.6 cm; Wt 100.0 kg
[2021-12-31 20:21] VITALS: BP 117/83
[~2021-12-31 20:21] MED LIST changes: +AMOX875T2 PO; +LIDO20SO23 MM; +NAPR500T8 PO
--- NOTE | 2021-12-31 20:28 | ED Psychosocial ---
General Chief Complaint: Psych/Social Disorder Stated Complaint: DIFF FOCUSING Source: patient Exam Limitations: no limitations History of Present Illness Date Seen by Provider: Dec 31, 2021 Time Seen by Provider: 20:25 Initial Comments To ER by EMS from home with a 1 week history of difficulty focusing. He states that he is looking up at the ceiling and then down to his shoes and he could not stop doing this. History of schizophrenia. He states that he now feels fine. Timing/Duration: constant Severity: mild Associated Symptoms: impaired concentration Allergies and Home Medications Allergies Coded Allergies: SILVANAANo Known Allergies (Unverified Allergy, Mild, 01/08/10) Patient Home Medication List Home Medication List Reviewed: Yes Amoxicillin (Amoxicillin) 500 Mg Capsule, 500 MG PO TID Prescribed by: MURPHY TODD on 05/28/19 0216 Amoxicillin (Amoxicillin) 875 Mg Tablet, 875 MG PO BID Prescribed by: GONZALO VANEGAS on 01/29/21 2305 Azithromycin (Azithromycin) 250 Mg Tablet, 250 MG PO DAILY Prescribed by: GLENROY BALDERAS on 10/03/14 2323 Benzonatate (Benzonatate) 200 Mg Capsule, 1 EACH PO TID PRN for COUGH Prescribed by: GLENROY BALDERAS on 10/03/14 2316 Esomeprazole Mag Trihydrate (Nexium) 40 Mg Capsule.dr, 1 CAP PO DAILY, (Reported) Entered as Reported by: SONJA VIZCARRA on 05/28/13 1407 Haloperidol (Haldol Tab) 5 Mg Tab, 10 MG PO HS, (Reported) Entered as Reported by: CHAIM BROCK on 10/01/11 2146 Hydrocodone/Acetaminophen (Hydrocodone/Acetaminophen 5 MG/325 MG TAB) 1 Each Tablet, 1 EACH PO Q6H Prescribed by: WALTER DIAZ on 12/02/16 1404 Hyoscyamine Sulfate (Levsin-Sl) 0.125 Mg Tab.subl, 1-2 TAB SL Q4H Prescribed by: GONZALO VANEGAS on 08/21/192114 Ketorolac Tromethamine (Ketorolac Tromethamine) 10 Mg Tablet, 10 MG PO Q6H Prescribed by: GNOZALO VANEGAS on 08/21/192114 Lidocaine HCl (Lidocaine HCl Viscous) 15 Ml Solution, 1-2 ML MM [id number] Prescribed by: GONZALO VANEGAS on 01/29/212304 Naproxen (Naproxen) 500 Mg Tablet.dr, 500 MG PO BID Prescribed by: GONZALO VANEGAS on 01/29/212304 Prednisone (Deltasone Tablet) 20 Mg Tab, 20 MG PO DAILY Prescribed by: GLENROY BALDERAS on 10/03/14 2314 Risperidone (Risperdal) 3 Mg Tablet, 3 MG PO BID, (Reported) Entered as Reported by: RODERICK ZUNIGA on 01/08/10 1138 Rosuvastatin Calcium (Crestor) 40 Mg Tablet, 40 MG PO HS, (Reported) Entered as Reported by: RODERICK ZUNIGA on 01/08/10 1136 Review of Systems Constitutional: see HPI EENTM: see HPI Respiratory: no symptoms reported Cardiovascular: no symptoms reported Genitourinary: no symptoms reported Musculoskeletal: no symptoms reported Skin: no symptoms reported Psychiatric/Neurological: No Symptoms Reported Past Pxegzmt-Gyyxdl-Zzgogd Hx Past Medical History Surgeries: Yes Gallbladder, Tonsillectomy Respiratory: No Cardiac: Yes High Cholesterol Neurological: No Reproductive Disorders: No Sexually Transmitted Disease: No Genitourinary: No Gastrointestinal: Yes (S/P WICHO) Pancreatitis, Gall Bladder Disease Musculoskeletal: No Endocrine: No HEENT: Yes (CHRONIC DENTAL PROBLEMS) Cancer: No Psychosocial: Yes Schizophrenia Integumentary: No Blood Disorders: No Physical Exam Capillary Refill : Height, Weight, BMI Height: 5'9" Weight: 217lbs. oz. 98.637179jn; 32.00 BMI Method:Stated General Appearance: WD/WN, no apparent distress, other (States he feels back to normal now. Pleasant. Cooperative. Has no other complaints.) HEENT: PERRL/EOMI, normal ENT inspection Neck: non-tender, full range of motion Respiratory: no respiratory distress, no accessory muscle use Cardiovascular: regular rate, rhythm, no murmur Gastrointestinal: normal bowel sounds, non tender, soft Neurologic/Psychiatric: alert, normal mood/affect, oriented x 3 Appearance/Memory: appropriate appearance, appropriate insight, neat Behavior/Eye Contact: cooperative, good eye contact Skin: normal color, warm/dry Departure Impression Primary Impression: Schizophrenia Disposition: 01 HOME, SELF-CARE Condition: Stable Departure-Patient Inst. Decision time for Depature: 20:27 Referrals: BHUPENDRA ELISE DO (PCP/Family) Primary Care Physician Patient Instructions: Schizophrenia Add. Discharge Instructions: 1. Call your mental health provider on Sunday to make an appointment to be seen. If you are still having the symptoms that you may discuss adjusting your schizophrenia medications. All discharge instructions reviewed with patient and/or family. Voiced understanding. WALTER DIAZ APRN Dec 31, 2021 20:28
== END 2021-12-31 20:29 | disposition home or self-care (01) ==
LOC: EDUNIT# 20:21 → ER 20:22
DX: F20.9 Schizophrenia, unspecified (principal)
CPT/HCPCS: 99283

== ENCOUNTER 2022-05-01 17:23 | Emergency (ER) | payer MEDICARE ==
[~2022-05-01] VITALS: Ht 185.4 cm; Wt 86.1 kg
--- NOTE | 2022-05-01 19:13 | ED GI ---
General Chief Complaint: - Reproductive Stated Complaint: NAUSEATED,DARK URINE Nursing Triage Note: PT AMBULATORY TO ROOM. PT STATES HE HAS HAD NAUSEA X3-[address] ELISE PRESCRIBED HIM ZOFRAN AND HE STATES IT HAS NOT HELPED. PT ALSO REPORTS DARK URINE STARTING TODAY Source of Information: Patient Exam Limitations: No Limitations History of Present Illness Date Seen by Provider: May 01, 2022 Time Seen by Provider: 18:44 Initial Comments Patient to ER by private conveyance with chief complaint that for the past week he has been experiencing some nausea without vomiting. No diarrhea or constipation. He went to Dr. ELISE's office and received a negative COVID test and was given some ondansetron which she is now running out of. He is continuing to have nausea and noticed that his urine is very dark today. He is drinking fluids. He denies any abdominal pain. History of gallbladder removal. He has a history of schizophrenia and hyperlipidemia. He has been able to take and keep down his medications. Allergies and Home Medications Allergies Coded Allergies: Amy Known Allergies (Unverified Allergy, Mild, 01/08/10) Patient Home Medication List Home Medication List Reviewed: Yes Amoxicillin (Amoxicillin) 500 Mg Capsule, 500 MG PO TID Prescribed by: MURPHY TODD on 05/28/19 0216 Amoxicillin (Amoxicillin) 875 Mg Tablet, 875 MG PO BID Prescribed by: GONZALO VANEGAS on 01/29/21 2305 Azithromycin (Azithromycin) 250 Mg Tablet, 250 MG PO DAILY Prescribed by: GLENROY BALDERAS on 10/03/14 2323 Benzonatate (Benzonatate) 200 Mg Capsule, 1 EACH PO TID PRN for COUGH Prescribed by: GLENROY BALDERAS on 10/03/14 2316 Esomeprazole Mag Trihydrate (Nexium) 40 Mg Capsule.dr, 1 CAP PO DAILY, (Repo rted) Entered as Reported by: SONJA VIZCARRA on 05/28/13 1407 Haloperidol (Haldol Tab) 5 Mg Tab, 10 MG PO HS, (Reported) Entered as Reported by: CHAIM BROCK on 10/01/11 2146 Hydrocodone/Acetaminophen (Hydrocodone/Acetaminophen 5 MG/325 MG TAB) 1 Each Tablet, 1 EACH PO Q6H Prescribed by: WALTER DIAZ on 12/02/16 1404 Hyoscyamine Sulfate (Levsin-Sl) 0.125 Mg Tab.subl, 1-2 TAB SL Q4H Prescribed by: GONZALO VANEGAS on 08/21/192114 Ketorolac Tromethamine (Ketorolac Tromethamine) 10 Mg Tablet, 10 MG PO Q6H Prescribed by: GONZALO VANEGAS on 08/21/192114 Lidocaine HCl (Lidocaine HCl Viscous) 15 Ml Solution, 1-2 ML MM [id number] Prescribed by: GONZALO VANEGAS on 01/29/212304 Naproxen (Naproxen) 500 Mg Tablet.dr, 500 MG PO BID Prescribed by: GONZALO VANEGAS on 01/29/212304 Prednisone (Deltasone Tablet) 20 Mg Tab, 20 MG PO DAILY Prescribed by: GLENROY BALDERAS on 10/03/142313 Risperidone (Risperdal) 3 Mg Tablet, 3 MG PO BID, (Reported) Entered as Reported by: RODERICK ZUNIGA on 01/08/10 113 Rosuvastatin Calcium (Crestor) 40 Mg Tablet, 40 MG PO HS, (Reported) Entered as Reported by: RODERICK ZUNIGA on 01/08/10 113 Review of Systems Review of Systems Constitutional: No chills, No diaphoresis EENTM: No Blurred Vision, No Double Vision Respiratory: Denies Cough, Denies Shortness of Air Cardiovascular: Denies Chest Pain, Denies Lightheadedness Gastrointestinal: Denies Constipated, Denies Diarrhea; Nausea; Denies Poor Appetite; Poor Fluid Intake; Denies Vomiting Genitourinary: Denies Burning, Denies Discharge Musculoskeletal: No back pain, No joint pain All Other Systems Reviewed Negative Unless Noted: Yes Past Zbwdton-Quqlhv-Jsffiu Hx Patient Social History Tobacco Use?: Yes Tobacco type used: Cigarettes Smoking Status: Current Everyday Smoker Use of E-Cig and/or Vaping dev: No Substance use?: No Alcohol Use?: No Immunizations Up To Date Influenza Vaccine Up-to-Date: Yes; Up-to-Date First/Initial COVID19 Vaccinat: 02/25 Second COVID19 Vaccination Christiano: 03/28 Past Medical History Surgery/Hospitalization HX: wicho, t/a, hyperlipidemia, pancreatitis, schizophrenia, gerd Surgeries: Yes Gallbladder, Tonsillectomy Respiratory: No Cardiac: Yes High Cholesterol Neurological: No Reproductive Disorders: No Sexually Transmitted Disease: No Genitourinary: No Gastrointestinal: Yes (S/P WICHO) Pancreatitis, Gall Bladder Disease Musculoskeletal: No Endocrine: No HEENT: Yes (CHRONIC DENTAL PROBLEMS) Cancer: No Psychosocial: Yes Schizophrenia Integumentary: No Blood Disorders: No Physical Exam Vital Signs Vital Signs - First Documented 05/01/22 18:15 Temp 36.2 Pulse 122 Resp 18 B/P (MAP) 117/78 (91) Pulse Ox 100 Capillary Refill : Height/Weight/BMI Height: 5'9" Weight: 217lbs. oz. 98.823528tz; 25.00 BMI Method:Stated General Appearance: WD/WN, no apparent distress HEENT: PERRL/EOMI, pharynx normal Neck: full range of motion, supple, normal inspection Respiratory: lungs clear, normal breath sounds, no respiratory distress, no accessory muscle use Cardiovascular: normal peripheral pulses, regular rate, rhythm Gastrointestinal: normal bowel sounds, non tender, soft Neurologic/Psychiatric: alert, normal mood/affect, oriented x 3 Skin: normal color, warm/dry Progress/Results/Core Measures Results/Orders Lab Results Laboratory Tests Test 05/01/22 19:25 Range/Units White Blood Count 8.1 4.3-11.0 10^3/uL Red Blood Count 4.73 4.30-5.52 10^6/uL Hemoglobin 15.9 13.3-17.7 g/dL Hematocrit 44 40-54 % Mean Corpuscular Volume 92 80-99 fL Mean Corpuscular Hemoglobin 34 25-34 pg Mean Corpuscular Hemoglobin Concent 36 32-36 g/dL Red Cell Distribution Width 13.7 10.0-14.5 % Platelet Count 133 130-400 10^3/uL Mean Platelet Volume 9.2 9.0-12.2 fL Immature Granulocyte % (Auto) 0 % Neutrophils (%) (Auto) 78 H 42-75 % Lymphocytes (%) (Auto) 14 12-44 % Monocytes (%) (Auto) 7 0-12 % Eosinophils (%) (Auto) 1 0-10 % Basophils (%) (Auto) 1 0-10 % Neutrophils # (Auto) 6.3 1.8-7.8 10^3/uL Lymphocytes # (Auto) 1.1 1.0-4.0 10^3/uL Monocytes # (Auto) 0.6 0.0-1.0 10^3/uL Eosinophils # (Auto) 0.0 0.0-0.3 10^3/uL Basophils # (Auto) 0.1 0.0-0.1 10^3/uL Immature Granulocyte # (Auto) 0.0 0.0-0.1 10^3/uL Urine Color ORANGE Urine Clarity SL CLOUDY Urine pH 6.0 5-9 Urine Specific [place] 1.015 L 1.016-1.022 Urine Protein 1+ H NEGATIVE Urine Glucose (UA) NEGATIVE NEGATIVE Urine Ketones TRACE H NEGATIVE Urine Nitrite NEGATIVE NEGATIVE Urine Bilirubin 1+ H NEGATIVE Urine Urobilinogen 4.0 < = 1.0 MG/DL Urine Leukocyte Esterase TRACE H NEGATIVE Urine RBC (Auto) TRACE-I H NEGATIVE Urine RBC 0-2 /HPF Urine WBC 0-2 /HPF Urine Squamous Epithelial Cells RARE /HPF Urine Crystals NONE /LPF Urine Bacteria FEW H /HPF Urine Casts PRESENT /LPF Urine Granular Casts 10-25 H /LPF Urine Mucus MODERATE H /LPF Urine Yeast FEW H /HPF Urine Culture Indicated YES Sodium Level 136 135-145 MMOL/L Potassium Level 3.5 L 3.6-5.0 MMOL/L Chloride Level 100 98-107 MMOL/L Carbon Dioxide Level 19 L 21-32 MMOL/L Anion Gap 17 H 5-14 MMOL/L Blood Urea Nitrogen 9 7-18 MG/DL Creatinine 1.20 0.60-1.30 MG/DL Estimat Glomerular Filtration Rate 73 BUN/Creatinine Ratio 8 Glucose Level 120 H 70-105 MG/DL Calcium Level 10.5 H 8.5-10.1 MG/DL Corrected Calcium 8.5-10.1 MG/DL Total Bilirubin 1.8 H 0.1-1.0 MG/DL Aspartate Amino Transf (AST/SGOT) 15 5-34 U/L Alanine Aminotransferase (ALT/SGPT) 14 0-55 U/L Alkaline Phosphatase 95 40-136 U/L Total Protein 8.8 H 6.4-8.2 GM/DL Albumin 4.9 H 3.2-4.5 GM/DL My Orders Orders - MURPHY TODD Ua Culture If Indicated (05/01/22 18:07) Cbc With Automated Diff (05/01/22 19:04) Comprehensive Metabolic Panel (05/01/22 19:04) Ondansetron Oral Dissolve Tab (Zofran (05/01/22 19:15) Covid-19 External Lab Results (05/01/22 19:45) Urine Culture (05/01/22 19:25) Medications Given in ED Current Medications Medications Dose Ordered Sig/Vj Route Start Time Stop Time Status Last Admin Dose Admin Ondansetron HCl 8 mg ONCE ONCE PO 05/01/22 19:15 05/01/22 19:16 DC 05/01/22 19:20 8 MG Vital Signs/I&O 05/01/22 18:15 Temp 36.2 Pulse 122 Resp 18 B/P (MAP) 117/78 (91) Pulse Ox 100 Blood Pressure Mean: 91 Progress Progress Note #1: Time: 19:12 Progress Note The patient has dry oromucosa and tachycardia around 115. We offered an IV bag of fluids but he declined. He would like us to check labs, urine and give him some ondansetron. He appears to have a viral gut bug. He had a negative COVID test with Dr. Elise. Progress Note #2: Time: 20:24 Progress Note Patient is drinking and is okay to go home. His urine labs reveal a little bit of dehydration but nothing significant. He is still declined IV fluids. Departure Impression Primary Impression: Gastroenteritis Disposition: 01 HOME, SELF-CARE Condition: Stable Departure-Patient Inst. Decision time for Depature: 20:26 Referrals: BHUPENDRA ELISE DO (PCP/Family) Primary Care Physician Patient Instructions: Viral Gastroenteritis, Adult (DC) Add. Discharge Instructions: Drink lots of fluids. Sports drinks are encouraged. Ondansetron 1 tablet under the tongue every 6 hours as needed for nausea or vomiting. If you are still having nausea 30 minutes later then take a second tablet. Follow-up with your primary care provider if you are still having symptoms later in the week. Return to the ER for intractable symptoms. All discharge instructions reviewed with patient and/or family. Voiced understanding. Scripts Ondansetron (Ondansetron Odt) 4 Mg Tab.rapdis 4-8 MG PO Q6H PRN for NAUSEA/VOMITING, #20 TAB 0 Refills Prov: MURPHY TODD 05/01/22 MURPHY TODD May 01, 2022 19:13
[2022-05-01] MEDS ORDERED: ONDANSETRON 4 MG (ZOFRAN) ORAL DISSOLVE TAB PO ONE (19:15)
[2022-05-01 19:38] LABS: BASOPHILS # (AUTO) 0.1 10^3/uL (0.0-0.1); BASOPHILS % (AUTO) 1 % (0-10); EOSINOPHILS % (AUTO) 1 % (0-10); HEMATOCRIT 44 % (40-54); HEMOGLOBIN 15.9 g/dL (13.3-17.7); LYMPHOCYTES # (AUTO) 1.1 10^3/uL (1.0-4.0); LYMPHOCYTES % (AUTO) 14 % (12-44); MEAN CORPUSCULAR HEMOGLOBIN 34 pg (25-34); MEAN CORPUSCULAR HGB CONC 36 g/dL (32-36); MEAN CORPUSCULAR VOLUME 92 fL (80-99); MEAN PLATELET VOLUME 9.2 fL (9.0-12.2); MONOCYTES # (AUTO) 0.6 10^3/uL (0.0-1.0); MONOCYTES % (AUTO) 7 % (0-12); NEUTROPHILS # (AUTO) 6.3 10^3/uL (1.8-7.8); NEUTROPHILS % (AUTO) 78 % (42-75); PLATELET COUNT 133 10^3/uL (130-400); WHITE BLOOD COUNT 8.1 10^3/uL (4.3-11.0)
[2022-05-01 19:40] LABS: BILIRUBIN,URINE 1+ (NEGATIVE); CLARITY,URINE SL CLOUDY; COLOR,URINE ORANGE; GLUCOSE, URINE (UA) NEGATIVE (NEGATIVE); KETONES,URINE TRACE (NEGATIVE); LEUKOCYTE ESTERASE ,URINE TRACE (NEGATIVE); NITRITE,URINE NEGATIVE (NEGATIVE); PROTEIN,URINE 1+ (NEGATIVE)
[2022-05-01 20:00] LABS: BACTERIA,URINE FEW /HPF; RBC,URINE 0-2 /HPF; SQUAMOUS EPITHELIAL CELL,UR RARE /HPF; WBC,URINE 0-2 /HPF; YEAST,URINE FEW /HPF
[2022-05-01 20:07] LABS: ALANINE AMINOTRANSFERASE 14 U/L (0-55); ALBUMIN 4.9 GM/DL (3.2-4.5); ALKALINE PHOSPHATASE 95 U/L (40-136); BILIRUBIN,TOTAL 1.8 MG/DL (0.1-1.0); BUN/CREATININE RATIO 8; CALCIUM 10.5 MG/DL (8.5-10.1); CARBON DIOXIDE 19 MMOL/L (21-32); CHLORIDE 100 MMOL/L (98-107); GFR ESTIMATED 73; GLUCOSE 120 MG/DL (70-105); POTASSIUM 3.5 MMOL/L (3.6-5.0); SODIUM 136 MMOL/L (135-145); TOTAL PROTEIN 8.8 GM/DL (6.4-8.2)
[2022-05-01] MEDS ORDERED: ONDA4TAB11 PO (20:27)
[2022-05-01 20:30] VITALS: BP 123/86
== END 2022-05-01 20:32 | disposition home or self-care (01) ==
LOC: EDUNIT# 17:23 → ER 17:26
DX: K52.9 Noninfective gastroenteritis and colitis, unspecified (principal); R00.0 Tachycardia, unspecified; F17.210 Nicotine dependence, cigarettes, uncomplicated; Z20.822 Contact with and (suspected) exposure to COVID-19
CPT/HCPCS: 36415; 80053; 81000; 85025; 87088

== ENCOUNTER 2022-05-12 11:39 | Emergency (ER) | payer MEDICARE ==
[~2022-05-12] VITALS: Ht 175 cm; Wt 86.1 kg
--- NOTE | 2022-05-12 11:58 | ED General ---
General Chief Complaint: Abdominal/GI Problems Stated Complaint: N/V Nursing Triage Note: PT PRESENTS TO ED VIA EMS FROM HOME WITH COMPLAINTS OF NAUSEA X1 WEEK. PT REPORTS HE HAS BEEN UNABLE TO EAT OR TAKE HIS MEDICAINE SINCE HE STARTED FEELING SICK. PT DENIES BM X 1 WEEK. PT ALSO REPORTS SLURRED SPEACH X 2 DAYS. PT LIVES BY HIMSELF AND CALLED EMS TODAY FOR HIS COMPLAINTS. Source of Information: Patient Exam Limitations: No Limitations History of Present Illness Date Seen by Provider: May 12, 2022 Time Seen by Provider: 11:45 Initial Comments Patient is a 52-year-old male who presents to the emergency department today with a chief complaint of generalized weakness, nausea and slurred speech for the last 2 days. Patient started becoming anxious about a week ago and stopped eating. He states he has not had a bowel movement in a week. He has been drinking fluids but not able to eat anything. No fevers or chills. No shortness of breath or cough. No problems with urination. He takes medications for schizophrenia including Invega and Haldol. Again none of these in a week. He has a guardian. He denies abdominal pain. He denies alcohol use or illicit substance abuse. He called the ambulance himself. No prior history of stroke. He is a smoker but has not smoked in a week since he has been sick. All other review of systems reviewed and negative except as stated Timing/Duration: 1 Week Severity: Moderate Associated Systoms: Malaise, Nausea/Vomiting, Other (slurred speech) Allergies and Home Medications Allergies Coded Allergies: NKANo Known Allergies (Unverified Allergy, Mild, 01/08/10) Patient Home Medication List Home Medication List Reviewed: Yes Amoxicillin (Amoxicillin) 500 Mg Capsule, 500 MG PO TID Prescribed by: MURPHY TODD on 05/28/19 0216 Amoxicillin (Amoxicillin) 875 Mg Tablet, 875 MG PO BID Prescribed by: GONZALO VANEGAS on 01/29/21 2305 Azithromycin (Azithromycin) 250 Mg Tablet, 250 MG PO DAILY Prescribed by: GLNEROY BALDERAS on 10/03/14 2323 Benzonatate (Benzonatate) 200 Mg Capsule, 1 EACH PO TID PRN for COUGH Prescribed by: GLENROY BALDERAS on 10/03/14 2316 Esomeprazole Mag Trihydrate (Nexium) 40 Mg Capsule.dr, 1 CAP PO DAILY, (Reported) Entered as Reported by: SONJA VIZCARRA on 05/28/13 140 Haloperidol (Haldol Tab) 5 Mg Tab, 10 MG PO HS, (Reported) Entered as Reported by: CHAIM BROCK on 10/01/112145 Hydrocodone/Acetaminophen (Hydrocodone/Acetaminophen 5 MG/325 MG TAB) 1 Each Tablet, 1 EACH PO Q6H Prescribed by: WALTER DIAZ on 12/02/16 140 Hyoscyamine Sulfate (Levsin-Sl) 0.125 Mg Tab.subl, 1-2 TAB SL Q4H Prescribed by: GONZALO VANEGAS on 08/21/192114 Ketorolac Tromethamine (Ketorolac Tromethamine) 10 Mg Tablet, 10 MG PO Q6H Prescribed by: GONZALO VANEGAS on 08/21/192114 Lidocaine HCl (Lidocaine HCl Viscous) 15 Ml Solution, 1-2 ML MM [id number] Prescribed by: GONZALO VANEGAS on 01/29/212304 Naproxen (Naproxen) 500 Mg Tablet.dr, 500 MG PO BID Prescribed by: GONZALO VANEGAS on 01/29/212304 Ondansetron (Ondansetron Odt) 4 Mg Tab.rapdis, 4-8 MG PO Q6H PRN for NAUSEA/VOMITING Prescribed by: MURPHY TODD on 05/01/222026 Ondansetron (Ondansetron Odt) 4 Mg Tab.rapdis, 4 MG PO Q8H PRN for nausea Prescribed by: TAE JETT on 05/12/22 1515 Prednisone (Deltasone Tablet) 20 Mg Tab, 20 MG PO DAILY Prescribed by: GLENROY BALDERAS on 10/03/14 2314 Risperidone (Risperdal) 3 Mg Tablet, 3 MG PO BID, (Reported) Entered as Reported by: RODERICK ZUNIGA on 01/08/10 1138 Rosuvastatin Calcium (Crestor) 40 Mg Tablet, 40 MG PO HS, (Reported) Entered as Reported by: RODERICK ZUNIGA on 01/08/10 1136 Review of Systems Review of Systems Constitutional: see HPI EENTM: no symptoms reported Respiratory: no symptoms reported Cardiovascular: no symptoms reported Gastrointestinal: constipation, nausea Genitourinary: no symptoms reported Musculoskeletal: no symptoms reported Skin: no symptoms reported Psychiatric/Neurological: Other (slurred speech) All Other Systems Reviewed Negative Unless Noted: Yes Past Kdrmjbl-Scevqz-Sobcea Hx Patient Social History Tobacco Use?: Yes Smoking Status: Former Smoker Substance use?: No Alcohol Use?: No Pt feels they are or have been: No Immunizations Up To Date First/Initial COVID19 Vaccinat: 02/25 Second COVID19 Vaccination Christiano: 03/28 Third COVID19 Vaccination Date: 09/27 COVID19 Vaccine [employer] 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 Past Medical History Surgery/Hospitalization HX: wicho, t/a, hyperlipidemia, pancreatitis, schizophrenia, gerd Surgeries: Yes Gallbladder, Tonsillectomy Respiratory: No Cardiac: Yes High Cholesterol Neurological: No Reproductive Disorders: No Sexually Transmitted Disease: No Genitourinary: No Gastrointestinal: Yes (S/P WICHO) Pancreatitis, Gall Bladder Disease Musculoskeletal: No Endocrine: No HEENT: Yes (CHRONIC DENTAL PROBLEMS) Cancer: No Psychosocial: Yes Schizophrenia Integumentary: No Blood Disorders: No Physical Exam Vital Signs Vital Signs - First Documented 05/12/22 11:45 Temp 36.0 Pulse 100 Resp 18 B/P (MAP) 108/75 (86) Pulse Ox 97 Capillary Refill : Less Than 3 Seconds Height, Weight, BMI Height: 5'9" Weight: 217lbs. oz. 98.679624bt; 28.00 BMI Method:Stated General Appearance: No Apparent Distress, WD/WN, Other (smiles) Eyes: Bilateral Eye Normal Inspection, Bilateral Eye PERRL, Bilateral Eye EOMI HEENT: PERRL/EOMI, Pharynx Normal, Other (Edentulous) Neck: Normal Inspection Respiratory: Lungs Clear, Normal Breath Sounds, No Accessory Muscle Use, No Respiratory Distress Cardiovascular: Normal Peripheral Pulses, Tachycardia (upper 90's) Gastrointestinal: Non Tender, Soft, Other (soft mass lower abdomen - just inferior to the umbilicus. non tender) Extremity: Normal Capillary Refill, Normal Inspection, Normal Range of Motion, Non Tender, No Calf Tenderness, No Pedal Edema Neurologic/Psychiatric: Alert, Oriented x3, No Motor/Sensory Deficits, Normal Mood/Affect Skin: Normal Color, Warm/Dry Progress/Results/Core Measures Suspected Sepsis SIRS Temperature: Pulse: 100 Respiratory Rate: 18 Laboratory Tests 05/12/22 11:45: White Blood Count 7.0 Blood Pressure 108 /75 Mean: 86 Laboratory Tests 05/12/22 11:45: Creatinine 0.79, INR Comment 1.2, Platelet Count 186, Total Bilirubin 0.9 Results/Orders Lab Results Laboratory Tests Test 05/12/22 11:45 05/12/22 11:59 05/12/22 12:39 05/12/22 13:43 Range/Units White Blood Count 7.0 4.3-11.0 10^3/uL Red Blood Count 3.80 L 4.30-5.52 10^6/uL Hemoglobin 13.0 L 13.3-17.7 g/dL Hematocrit 37 L 40-54 % Mean Corpuscular Volume 96 80-99 fL Mean Corpuscular Hemoglobin 34 25-34 pg Mean Corpuscular Hemoglobin Concent 36 32-36 g/dL Red Cell Distribution Width 14.2 10.0-14.5 % Platelet Count 186 130-400 10^3/uL Mean Platelet Volume 9.1 9.0-12.2 fL Immature Granulocyte % (Auto) 0 % Neutrophils (%) (Auto) 81 H 42-75 % Lymphocytes (%) (Auto) 13 12-44 % Monocytes (%) (Auto) 5 0-12 % Eosinophils (%) (Auto) 0 0-10 % Basophils (%) (Auto) 1 0-10 % Neutrophils # (Auto) 5.7 1.8-7.8 10^3/uL Lymphocytes # (Auto) 0.9 L 1.0-4.0 10^3/uL Monocytes # (Auto) 0.4 0.0-1.0 10^3/uL Eosinophils # (Auto) 0.0 0.0-0.3 10^3/uL Basophils # (Auto) 0.0 0.0-0.1 10^3/uL Immature Granulocyte # (Auto) 0.0 0.0-0.1 10^3/uL Prothrombin Time 15.2 H 12.2-14.7 SEC INR Comment 1.2 0.8-1.4 Activated Partial Thromboplast Time 29 24-35 SEC D-Dimer <= 0.27 0.00-0.49 UG/ML Sodium Level 139 135-145 MMOL/L Potassium Level 3.6 3.6-5.0 MMOL/L Chloride Level 109 H 98-107 MMOL/L Carbon Dioxide Level 20 L 21-32 MMOL/L Anion Gap 10 5-14 MMOL/L Blood Urea Nitrogen 12 7-18 MG/DL Creatinine 0.79 0.60-1.30 MG/DL Estimat Glomerular Filtration Rate 108 BUN/Creatinine Ratio 15 Glucose Level 112 H 70-105 MG/DL Calcium Level 9.4 8.5-10.1 MG/DL Corrected Calcium 9.0 8.5-10.1 MG/DL Total Bilirubin 0.9 0.1-1.0 MG/DL Aspartate Amino Transf (AST/SGOT) 25 5-34 U/L Alanine Aminotransferase (ALT/SGPT) 35 0-55 U/L Alkaline Phosphatase 75 40-136 U/L Troponin I < 0.028 <0.028 NG/ML Total Protein 7.5 6.4-8.2 GM/DL Albumin 4.5 3.2-4.5 GM/DL Glucometer 110 70-110 MG/DL SARS-CoV-2 RNA (RT-PCR) Not Detected Not Detecte Urine Color YELLOW Urine Clarity CLEAR Urine pH 6.0 5-9 Urine Specific [place] <=1.005 1.016-1.022 Urine Protein NEGATIVE NEGATIVE Urine Glucose (UA) NEGATIVE NEGATIVE Urine Ketones 1+ H NEGATIVE Urine Nitrite NEGATIVE NEGATIVE Urine Bilirubin NEGATIVE NEGATIVE Urine Urobilinogen 0.2 < = 1.0 MG/DL Urine Leukocyte Esterase NEGATIVE NEGATIVE Urine RBC (Auto) NEGATIVE NEGATIVE Urine RBC NONE /HPF Urine WBC NONE /HPF Urine Squamous Epithelial Cells 0-2 /HPF Urine Crystals NONE /LPF Urine Bacteria NEGATIVE /HPF Urine Casts NONE /LPF Urine Mucus NEGATIVE /LPF Urine Culture Indicated NO My Orders Orders - TAE JETT MD Cbc With Automated Diff (05/12/22 11:54) Protime With Inr (05/12/22 11:54) Partial Thromboplastin Time (05/12/22 11:54) Comprehensive Metabolic Panel (05/12/22 11:54) Fibrin Degradation Products (05/12/22 11:54) Troponin I [place] (05/12/22 11:54) Ua Culture If Indicated (05/12/22 11:54) Chest 1 View, Ap/Pa Only (05/12/22 11:54) Ekg Tracing (05/12/22 11:54) Accucheck Stat ONCE (05/12/22 11:54) Ed Iv/Invasive Line Start (05/12/22 11:54) Ed Iv/Invasive Line Start (05/12/22 11:54) Vital Signs Stroke Patient Q15M (05/12/22 11:54) Ct Head Wo-R/O Stroke (05/12/22 11:54) O2 (05/12/22 11:54) Intake & Output 06,14,22 (05/12/22 11:54) Monitor-Rhythm Ecg Trace Only (05/12/22 11:54) Dysphagia Screening Tool Q10MX1 (05/12/22 11:54) Post Thrombolytic Adminstratio (05/12/22 11:54) Lipid Panel (05/13/22 06:00) Covid 19 Inhouse Test (05/12/22 12:31) Isolation Central Supply Req (05/12/22 12:31) General/Regular (05/12/22 Lunch) Ondansetron Injection (Zofran Injectio (05/12/22 15:30) Medications Given in ED Current Medications Medications Dose Ordered Sig/Vj Route Start Time Stop Time Status Last Admin Dose Admin Ondansetron HCl 8 mg ONCE ONCE IVP 05/12/22 15:30 05/12/22 15:31 DC 05/12/22 15:44 8 MG Vital Signs/I&O 05/12/22 11:45 Temp 36.0 Pulse 100 Resp 18 B/P (MAP) 108/75 (86) Pulse Ox 97 Capillary Refill : Less Than 3 Seconds Blood Pressure Mean: 86 Progress Note : Time: 14:18 Progress Note Reassessed patient after labs had come back, he is feeling "okay". He is not really nauseous right now. He still has slurred speech but I do suspect that it is because he is not wearing his dentures. His neuro exam other than a "slurred speech" is completely normal. No cerebellar findings, no sensory or motor weakness. His labs are completely within normal limits. Nothing to suggest an infection or inflammatory process. Head CT was nonconcerning. Urine is not infected. Chemistry is unremarkable. I discussed with him that possibly he developed a little "GI bug" and then when he quit taking his daily medications it increased his nausea due to possibly a withdrawal type picture. I asked him if he would like to try something to eat, soft foods. He is agreeable. We will monitor and see how he does. ECG Initial ECG Impression Date: May 12, 2022 Initial ECG Impression Time: 12:03 Initial ECG Rate: 92 Initial ECG Rhythm: Normal Sinus Initial ECG Intervals OH 185 QRS 92 QTc 401 Initial ECG Impression: Nonspecific Changes Comment sinus arrhythmia; NSSTW change inferiorly; no ST segment elevation or depression Diagnostic Imaging Diagonstic Imaging: Xray Plain Films/CT/US/NM/MRI: chest Comments [facility] [place], [place] NAME: MARIE BRADFORD [facility] REC#: [id number] PT STATUS: REG ER : 1970 PHYSICIAN: TAE JETT MD ADMIT DATE: 05/12/22/ER Signed Date of Exam:05/12/22 CHEST 1 VIEW, AP/PA ONLY EXAMINATION: Chest, one view. HISTORY: Slurred speech. COMPARISON: 10/03/2014. FINDINGS: Heart size and pulmonary vasculature are normal. The lungs are clear without consolidation, pleural effusion, or pneumothorax. The osseous structures are intact. IMPRESSION: 1. No acute radiographic abnormality in the chest. Dictated by: Dictated on workstation # [id number] Dict: 05/12/22 1214 Trans: 05/12/22 1249 [id number] Interpreted by: PHU PINEDO DO Electronically signed by: PHU PINEDO DO 05/12/22 1249 Diagonstic Imaging: CT Comments [facility] [place], [place] NAME: MARIE BRADFORD [facility] REC#: [id number] PT STATUS: REG ER : 1970 PHYSICIAN: TAE JETT MD ADMIT DATE: 05/12/22/ER Draft Date of Exam:05/12/22 CT HEAD WO-R/O STROKE PROCEDURE: CT head wo r/o stroke. TECHNIQUE: Multiple contiguous axial images were obtained through the brain without the use of intravenous contrast. Auto Exposure Controls were utilized during the CT exam to meet ALARA standards for radiation dose reduction. INDICATION: Slurred speech, symptoms of two days' duration. FINDINGS: There was no evidence for cerebral edema and there were no findings to suggest CT evidence of a subacute stroke. There is no hemorrhage. Baltazar-white matter differentiation is maintained. There is no sulcal effacement. The basilar cisterns are patent. There is no evidence for an elevation of the intracranial pressures. There are no abnormal extra-axial fluid collections. There is no mass or mass effect. IMPRESSION: No hemorrhage, edema, or acute/subacute abnormalities identified. Dictated on workstation # [id number] Dict: 05/12/22 1235 Trans: 05/12/22 1246 [id number] Interpreted by: EDILSON KIRKLAND Electronically signed by: Departure Impression Primary Impression: Nausea alone Disposition: 01 HOME, SELF-CARE Condition: Stable Departure-Patient Inst. Decision time for Depature: 15:14 Referrals: BHUPENDRA ELISE DO (PCP/Family) Primary Care Physician Patient Instructions: Nausea and Vomiting, Adult Add. Discharge Instructions: Follow a clear liquid diet today. You need to restart taking your medications for schizophrenia. Slowly advance your diet over the next 12 hours as tolerated. If you develop a fever or abdominal pain or vomiting please come back to the emergency room for reevaluation. Follow-up next week with your primary care physician. Scripts Ondansetron (Ondansetron Odt) 4 Mg Tab.rapdis 4 MG PO Q8H PRN for nausea, #10 TAB Prov: TAE JETT MD 05/12/22 TAE JETT MD May 12, 2022 11:58
[2022-05-12 12:02] LABS: BASOPHILS % (AUTO) 1 % (0-10); EOSINOPHILS % (AUTO) 0 % (0-10); HEMATOCRIT 37 % (40-54); LYMPHOCYTES # (AUTO) 0.9 10^3/uL (1.0-4.0); LYMPHOCYTES % (AUTO) 13 % (12-44); MEAN CORPUSCULAR HEMOGLOBIN 34 pg (25-34); MEAN CORPUSCULAR HGB CONC 36 g/dL (32-36); MEAN CORPUSCULAR VOLUME 96 fL (80-99); MEAN PLATELET VOLUME 9.1 fL (9.0-12.2); MONOCYTES # (AUTO) 0.4 10^3/uL (0.0-1.0); MONOCYTES % (AUTO) 5 % (0-12); NEUTROPHILS # (AUTO) 5.7 10^3/uL (1.8-7.8); NEUTROPHILS % (AUTO) 81 % (42-75); PLATELET COUNT 186 10^3/uL (130-400)
[2022-05-12 12:07] LABS: ALBUMIN 4.5 GM/DL (3.2-4.5); CHLORIDE 109 MMOL/L (98-107); POTASSIUM 3.6 MMOL/L (3.6-5.0); SODIUM 139 MMOL/L (135-145)
[2022-05-12 12:08] LABS: CALCIUM 9.4 MG/DL (8.5-10.1)
[2022-05-12 12:09] LABS: GLUCOSE 112 MG/DL (70-105)
[2022-05-12 12:10] LABS: TOTAL PROTEIN 7.5 GM/DL (6.4-8.2)
[2022-05-12 12:11] LABS: BILIRUBIN,TOTAL 0.9 MG/DL (0.1-1.0); CARBON DIOXIDE 20 MMOL/L (21-32)
[2022-05-12 12:13] LABS: ALKALINE PHOSPHATASE 75 U/L (40-136); CREATININE SERUM 0.79 MG/DL (0.60-1.30); GFR ESTIMATED 108
[2022-05-12 12:14] LABS: BUN/CREATININE RATIO 15
[2022-05-12 12:16] LABS: ALANINE AMINOTRANSFERASE 35 U/L (0-55)
--- NOTE | 2022-05-12 12:16 | Diagnostic Imaging Report ---
EXAMINATION: Chest, one view. HISTORY: Slurred speech. COMPARISON: 10/03/2014. FINDINGS: Heart size and pulmonary vasculature are normal. The lungs are clear without consolidation, pleural effusion, or pneumothorax. The osseous structures are intact. IMPRESSION: 1. No acute radiographic abnormality in the chest. Dictated by: Dictated on workstation # [id number]
[2022-05-12 12:27] LABS: FIBRIN DEGRADATION PRODUCTS <= 0.27 UG/ML (0.00-0.49); INR 1.2 (0.8-1.4); PARTIAL THROMBOPLASTIN TIME 29 SEC (24-35); PROTHROMBIN TIME PATIENT 15.2 SEC (12.2-14.7)
--- NOTE | 2022-05-12 12:46 | Diagnostic Imaging Report ---
PROCEDURE: CT head wo r/o stroke. TECHNIQUE: Multiple contiguous axial images were obtained through the brain without the use of intravenous contrast. Auto Exposure Controls were utilized during the CT exam to meet ALARA standards for radiation dose reduction. INDICATION: Slurred speech, symptoms of two days' duration. FINDINGS: There was no evidence for cerebral edema and there were no findings to suggest CT evidence of a subacute stroke. There is no hemorrhage. Baltazar-white matter differentiation is maintained. There is no sulcal effacement. The basilar cisterns are patent. There is no evidence for an elevation of the intracranial pressures. There are no abnormal extra-axial fluid collections. There is no mass or mass effect. IMPRESSION: No hemorrhage, edema, or acute/subacute abnormalities identified. Dictated by: Dictated on workstation # [id number]
[2022-05-12 13:51] LABS: BILIRUBIN,URINE NEGATIVE (NEGATIVE); CLARITY,URINE CLEAR; COLOR,URINE YELLOW; GLUCOSE, URINE (UA) NEGATIVE (NEGATIVE); KETONES,URINE 1+ (NEGATIVE); LEUKOCYTE ESTERASE ,URINE NEGATIVE (NEGATIVE); NITRITE,URINE NEGATIVE (NEGATIVE); PROTEIN,URINE NEGATIVE (NEGATIVE)
[2022-05-12 13:59] LABS: BACTERIA,URINE NEGATIVE /HPF; SQUAMOUS EPITHELIAL CELL,UR 0-2 /HPF
[2022-05-12] MEDS ORDERED: ONDA4TAB11 PO (15:15)
[2022-05-12] MEDS ORDERED: ONDANSETRON 4 MG/2 ML (SDV) Z0FRAN IVP ONE (15:30)
[2022-05-12 15:57] VITALS: BP 116/93
== END 2022-05-12 15:57 | disposition home or self-care (01) ==
LOC: EDUNIT# 11:39 → ER 11:43
DX: R11.0 Nausea (principal); F20.9 Schizophrenia, unspecified; Z87.891 Personal history of nicotine dependence; Z20.822 Contact with and (suspected) exposure to COVID-19; Z79.899 Other long term (current) drug therapy
CPT/HCPCS: 36415; 70450; 71045; 80053; 81000; 82947; 84484; 85025; 85379; 85610; 85730; 87636; 93005; 93041

== ENCOUNTER 2022-05-13 16:52 | Emergency (ER) | payer MEDICARE ==
[~2022-05-13] VITALS: Ht 182.9 cm; Wt 99.8 kg
[2022-05-13] MEDS ORDERED: HOLD METFORMIN - RECEIVED CONTRAST 20 ML VIAL IV SCH (17:30)
[2022-05-13] MEDS ORDERED: NS 100 ML (IVPB) BAG IV ONE (17:30)
[2022-05-13] MEDS ORDERED: IOHEXOL 350 MG/ML 100 ML (OMNIPAQUE 350) VIAL IV ONE (17:30)
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
[2022-05-13 17:39] LABS: BASOPHILS % (AUTO) 1 % (0-10); EOSINOPHILS # (AUTO) 0.1 10^3/uL (0.0-0.3); EOSINOPHILS % (AUTO) 1 % (0-10); HEMATOCRIT 37 % (40-54); HEMOGLOBIN 12.9 g/dL (13.3-17.7); LYMPHOCYTES # (AUTO) 1.2 10^3/uL (1.0-4.0); LYMPHOCYTES % (AUTO) 20 % (12-44); MEAN CORPUSCULAR HEMOGLOBIN 34 pg (25-34); MEAN CORPUSCULAR HGB CONC 35 g/dL (32-36); MEAN CORPUSCULAR VOLUME 97 fL (80-99); MEAN PLATELET VOLUME 8.8 fL (9.0-12.2); MONOCYTES # (AUTO) 0.4 10^3/uL (0.0-1.0); MONOCYTES % (AUTO) 7 % (0-12); NEUTROPHILS % (AUTO) 71 % (42-75); PLATELET COUNT 181 10^3/uL (130-400); WHITE BLOOD COUNT 5.7 10^3/uL (4.3-11.0)
[2022-05-13 17:49] LABS: ALBUMIN 4.4 GM/DL (3.2-4.5); POTASSIUM 3.5 MMOL/L (3.6-5.0)
[2022-05-13 17:50] LABS: CALCIUM 9.4 MG/DL (8.5-10.1)
[2022-05-13 17:51] LABS: TOTAL PROTEIN 7.3 GM/DL (6.4-8.2)
[2022-05-13 17:53] LABS: BILIRUBIN,TOTAL 0.8 MG/DL (0.1-1.0)
[2022-05-13 17:55] LABS: CREATININE SERUM 0.8 MG/DL (0.60-1.30)
[2022-05-13 18:35] LABS: TSH (THYROID ANALYZER) 0.83 UIU/ML (0.35-4.94)
[2022-05-13] MEDS ORDERED: LACTATED RINGERS 1,000 ML IV ONE (18:45)
--- NOTE | 2022-05-13 19:00 | Diagnostic Imaging Report ---
PROCEDURE: CT angiography of the head and CT angiography of the neck with and without contrast. TECHNIQUE: Contiguous noncontrast images were obtained from the skull base through the vertex. After intravenous contrast administration, helical CT angiography of the neck was performed. Source data was reformatted into 3D MIP projections. Delayed post contrast acquisition was also obtained. Auto Exposure Controls were utilized during the CT exam to meet ALARA standards for radiation dose reduction. INDICATION: Slurred speech. COMPARISON: Noncontrast CT head from 05/12/2022. FINDINGS: CTA NECK: Included portions of the aortic arch are unremarkable. Origins of the major arch vessels are widely patent. The bilateral common carotid arteries are also normal in course and caliber. By NASCET criteria, there is no focal significant stenosis. There is no evidence of dissection or thrombosis. The bilateral carotid bulbs and bilateral internal carotid arteries are also patent. There is no evidence of dissection or thrombosis. There is no focal significant stenosis. Within the posterior circulation, the vertebral arteries appear to be codominant. Vertebral arteries are patent from their origins to their confluence of the basilar artery. There is no evidence of dissection or thrombosis. Osseous structures show no acute abnormalities. No lytic or blastic bony lesions are seen. Age-related degenerative changes are noted. Included portions of the lung apices are clear. CTA [place] OF FIELD: The bilateral anterior and middle cerebral arteries show normal enhancement. There is no evidence of large vessel occlusion, aneurysm or vascular malformation. Within the posterior circulation, the basilar artery has a normal CT appearance. The right P1 segment is diminutive. Right posterior communicating artery however is patent. Otherwise, posterior cerebral arteries have a normal CT appearance. There is no evidence of large vessel occlusion, aneurysm or vascular malformation. PRE AND POST CONTRAST CT HEAD: Ventricles and cortical sulci remain stable in size and contour. There is no new mass effect or midline shift. Postcontrast images show no abnormal areas of enhancement. There is no new loss of corrales-white matter junction differentiation to suggest evolving acute territorial infarct. No intra-axial or extra-axial intracranial hemorrhage is seen. No other extra-axial masses or fluid collections are identified. Bony calvarium is intact. Paranasal sinuses and mastoid air cells are clear. IMPRESSION: 1. No acute vascular abnormality is seen within the head or neck. 2. No new acute intracranial abnormality. No CT evidence of acute infarct, mass or hemorrhage. Dictated by: Dictated on workstation # [id number]
[2022-05-13 19:41] LABS: BILIRUBIN,URINE NEGATIVE (NEGATIVE); CLARITY,URINE CLEAR; COLOR,URINE YELLOW; GLUCOSE, URINE (UA) NEGATIVE (NEGATIVE); KETONES,URINE TRACE (NEGATIVE); LEUKOCYTE ESTERASE ,URINE NEGATIVE (NEGATIVE); NITRITE,URINE NEGATIVE (NEGATIVE); PH,URINE 5.5 (5-9); PROTEIN,URINE NEGATIVE (NEGATIVE)
[2022-05-13 20:06] LABS: AMPHETAMINE SCREEN, URINE NEGATIVE (NEGATIVE); BARBITURATE SCREEN URINE NEGATIVE (NEGATIVE); BENZODIAZEPINES SCREEN URINE NEGATIVE (NEGATIVE); CANNABINOID SCREEN, URINE NEGATIVE (NEGATIVE); COCAINE SCREEN URINE NEGATIVE (NEGATIVE); METHADONE STAT NEGATIVE (NEGATIVE); OPIATE SCREEN URINE NEGATIVE (NEGATIVE); OXYCODONE STAT NEGATIVE (NEGATIVE); PROPOXYPHENE STAT NEGATIVE (NEGATIVE); TRICYCLIC ANTIDEPRESSANTS SCRE NEGATIVE (NEGATIVE)
[2022-05-13 20:10] LABS: BACTERIA,URINE TRACE /HPF; WBC,URINE 0-2 /HPF
[2022-05-13 20:11] LABS: SQUAMOUS EPITHELIAL CELL,UR RARE /HPF
[2022-05-13 22:21] VITALS: BP 137/83
== END 2022-05-13 21:02 | disposition home or self-care (01) ==
LOC: EDUNIT# 16:52 → ER 16:54
DX: R53.81 Other malaise (principal); M53.83 Other specified dorsopathies, cervicothoracic region; Z20.822 Contact with and (suspected) exposure to COVID-19
CPT/HCPCS: 70496; 70498; 80053; 80306; 81000; 83735; 84443; 85025; 87636; 96360; 99284; G0480; 36415; 80320

== ENCOUNTER 2022-09-29 11:38 | Emergency (ER) | payer MEDICARE ==
[~2022-09-29] VITALS: Ht 175 cm; Wt 99.8 kg
--- NOTE | 2022-09-29 11:57 | ED Chest Pain ---
General Chief Complaint: Chest Pain Stated Complaint: CHEST PAINS Nursing Triage Note: [facility] WITH CC OF CHEST PAIN THAT STARTED WHILE PLAYING BINGO. HX OF TIA BOUT 4 MONTHS AGO WITH SPEECH AND WALKING ISSUES Source: patient Exam Limitations: no limitations History of Present Illness Date Seen by Provider: Sep 29, 2022 Time Seen by Provider: 11:42 Initial Comments Here from [facility] with complaint of central chest discomfort that started earlier while playing bingo and and subsequently went away after taking acetaminophen as well as antacid. Denies dizziness, weakness and shortness of breath but did state that he had a little bit of nausea. Does have history of previous stroke which is why he is in the shelter. States he has problems with speech and walking. There is nothing new currently related to that. He has not had Timing/Duration: 1 hour, gone now Severity/Quality: moderate, dull Location: central Radiation: epigastric Activities at Onset: none Prior CP/Workup: no prior cardiac workup ASA po ENTREPRENEURSHIP PROGRAM DIRECTOR: No NTG SL ENTREPRENEURSHIP PROGRAM DIRECTOR: No Associated Symptoms: abdominal pain; No back pain, No fatigue, No fever/chills; nausea/vomiting; No shortness of breath, No weakness Allergies and Home Medications Allergies Coded Allergies: NKANo Known Allergies (Unverified Allergy, Mild, 01/08/10) Patient Home Medication List Home Medication List Reviewed: Yes Amoxicillin (Amoxicillin) 500 Mg Capsule, 500 MG PO TID Prescribed by: MURPHY TODD on 05/28/19 0216 Amoxicillin (Amoxicillin) 875 Mg Tablet, 875 MG PO BID Prescribed by: GONZALO VANEGAS on 01/29/21 2305 Azithromycin (Azithromycin) 250 Mg Tablet, 250 MG PO DAILY Prescribed by: GLENROY BALDERAS on 10/03/14 2323 Benzonatate (Benzonatate) 200 Mg Capsule, 1 EACH PO TID PRN for COUGH Prescribed by: GLENROY BALDERAS on 10/03/14 2316 Esomeprazole Mag Trihydrate (Nexium) 40 Mg Capsule., 1 CAP PO DAILY, (Reporte d) Entered as Reported by: SONJA VIZCARRA on 05/28/13 1407 Haloperidol (Haldol Tab) 5 Mg Tab, 10 MG PO HS, (Reported) Entered as Reported by: CHAIM BROCK on 10/01/11 2146 Hydrocodone/Acetaminophen (Hydrocodone/Acetaminophen 5 MG/325 MG TAB) 1 Each Tablet, 1 EACH PO Q6H Prescribed by: WALTER DIAZ on 12/02/16 1404 Hyoscyamine Sulfate (Levsin-Sl) 0.125 Mg Tab.subl, 1-2 TAB SL Q4H Prescribed by: GONZALO VANEGAS on 08/21/192114 Ketorolac Tromethamine (Ketorolac Tromethamine) 10 Mg Tablet, 10 MG PO Q6H Prescribed by: GONZALO VANEGAS on 08/21/192114 Lidocaine HCl (Lidocaine HCl Viscous) 15 Ml Solution, 1-2 ML MM [id number] Prescribed by: GONZALO VANEGAS on 01/29/212304 Naproxen (Naproxen) 500 Mg Tablet.dr, 500 MG PO BID Prescribed by: GONZALO VANEGAS on 01/29/212304 Ondansetron (Ondansetron Odt) 4 Mg Tab.rapdis, 4-8 MG PO Q6H PRN for NAUSEA/VOMITING Prescribed by: MURPHY TODD on 05/01/222026 Ondansetron (Ondansetron Odt) 4 Mg Tab.rapdis, 4 MG PO Q8H PRN for nausea Prescribed by: TAE JETT on 05/12/22 151 Prednisone (Deltasone Tablet) 20 Mg Tab, 20 MG PO DAILY Prescribed by: GLENROY BALDERAS on 10/03/14 2314 Risperidone (Risperdal) 3 Mg Tablet, 3 MG PO BID, (Reported) Entered as Reported by: RODERICK ZUNIGA on 01/08/10 1138 Rosuvastatin Calcium (Crestor) 40 Mg Tablet, 40 MG PO HS, (Reported) Entered as Reported by: RODERICK ZUNIGA on 01/08/10 1136 Review of Systems Review of Systems Constitutional: see HPI; No chills, No fever EENTM: No Nose Congestion, No Throat Pain Respiratory: Denies Cough, Denies SOA at Rest Cardiovascular: Chest Pain; Denies Edema Gastrointestinal: Denies Diarrhea; Nausea; Denies Vomiting Genitourinary: No Symptoms Reported Musculoskeletal: no symptoms reported Skin: no symptoms reported All Other Systems Reviewed Negative Unless Noted: Yes Past Otuldiw-Lsnaro-Dmcjav Hx Patient Social History Tobacco Use?: No Smoking Status: Former Smoker Substance use?: No Alcohol Use?: No Immunizations Up To Date First/Initial COVID19 Vaccinat: 02/25 Second COVID19 Vaccination Christiano: 03/28 Third COVID19 Vaccination Date: 09/27 Past Medical History Surgery/Hospitalization HX: wicho, t/a, hyperlipidemia, pancreatitis, schizophrenia, gerd Surgeries: Yes Gallbladder, Tonsillectomy Respiratory: No Cardiac: Yes High Cholesterol Neurological: No Reproductive Disorders: No Sexually Transmitted Disease: No Genitourinary: No Gastrointestinal: Yes (S/P WICHO) Pancreatitis, Gall Bladder Disease Musculoskeletal: No Endocrine: No HEENT: Yes (CHRONIC DENTAL PROBLEMS) Cancer: No Psychosocial: Yes Schizophrenia Integumentary: No Blood Disorders: No Family Medical History Reviewed Nursing Family Hx Physical Exam Vital Signs Vital Signs - First Documented 09/29/22 11:45 Temp 36.4 Pulse 98 Resp 18 B/P (MAP) 133/79 (97) Pulse Ox 100 O2 Delivery Room Air Capillary Refill : Less Than 3 Seconds Height, Weight, BMI Height: 5'9" Weight: 217lbs. oz. 98.234328xv; 32.00 BMI Method:Stated General Appearance: No Apparent Distress, WD/WN HEENT: PERRL/EOMI, Pharynx Normal Neck: Non Tender, Supple Respiratory: Lungs Clear, Normal Breath Sounds Cardiovascular: Regular Rate, Rhythm, No Murmur Gastrointestinal: Non Tender, Soft Extremity: Normal Range of Motion, Non Tender Neurologic/Psychiatric: Alert, Oriented x3 Skin: Normal Color, Warm/Dry Progress/Results/Core Measures Results/Orders Lab Results Laboratory Tests Test 09/29/22 11:50 09/29/22 14:11 Range/Units White Blood Count 8.3 4.3-11.0 10^3/uL Red Blood Count 4.63 4.30-5.52 10^6/uL Hemoglobin 14.5 13.3-17.7 g/dL Hematocrit 41 40-54 % Mean Corpuscular Volume 88 80-99 fL Mean Corpuscular Hemoglobin 31 25-34 pg Mean Corpuscular Hemoglobin Concent 36 32-36 g/dL Red Cell Distribution Width 12.6 10.0-14.5 % Platelet Count 155 130-400 10^3/uL Mean Platelet Volume 8.9 L 9.0-12.2 fL Immature Granulocyte % (Auto) 1 % Neutrophils (%) (Auto) 62 42-75 % Lymphocytes (%) (Auto) 25 12-44 % Monocytes (%) (Auto) 8 0-12 % Eosinophils (%) (Auto) 3 0-10 % Basophils (%) (Auto) 1 0-10 % Neutrophils # (Auto) 5.2 1.8-7.8 10^3/uL Lymphocytes # (Auto) 2.1 1.0-4.0 10^3/uL Monocytes # (Auto) 0.7 0.0-1.0 10^3/uL Eosinophils # (Auto) 0.3 0.0-0.3 10^3/uL Basophils # (Auto) 0.1 0.0-0.1 10^3/uL Immature Granulocyte # (Auto) 0.0 0.0-0.1 10^3/uL Prothrombin Time 14.9 H 12.2-14.7 SEC INR Comment 1.1 0.8-1.4 Activated Partial Thromboplast Time 29 24-35 SEC Sodium Level 137 135-145 MMOL/L Potassium Level 3.9 3.6-5.0 MMOL/L Chloride Level 103 98-107 MMOL/L Carbon Dioxide Level 25 21-32 MMOL/L Anion Gap 9 5-14 MMOL/L Blood Urea Nitrogen 16 7-18 MG/DL Creatinine 1.10 0.60-1.30 MG/DL Estimat Glomerular Filtration Rate 81 BUN/Creatinine Ratio 15 Glucose Level 169 H 70-105 MG/DL Calcium Level 9.5 8.5-10.1 MG/DL Corrected Calcium 9.2 8.5-10.1 MG/DL Magnesium Level 2.1 1.6-2.4 MG/DL Total Bilirubin 0.5 0.1-1.0 MG/DL Aspartate Amino Transf (AST/SGOT) 25 5-34 U/L Alanine Aminotransferase (ALT/SGPT) 54 0-55 U/L Alkaline Phosphatase 64 40-136 U/L Myoglobin 44.4 10.0-92.0 NG/ML Troponin I < 0.028 < 0.028 <0.028 NG/ML Total Protein 7.5 6.4-8.2 GM/DL Albumin 4.4 3.2-4.5 GM/DL My Orders Orders - JAZMIN MCKENNA MD Ekg Tracing (09/29/22 11:41) Cbc With Automated Diff (09/29/22 11:50) Magnesium (09/29/22 11:50) Chest 1 View, Ap/Pa Only (09/29/22 11:50) Comprehensive Metabolic Panel (09/29/22 11:50) Myoglobin Serum (09/29/22 11:50) Protime With Inr (09/29/22 11:50) Partial Thromboplastin Time (09/29/22 11:50) O2 (09/29/22 11:50) Monitor-Rhythm Ecg Trace Only (09/29/22 11:50) Lipid Panel (09/30/22 06:00) Ed Iv/Invasive Line Start (09/29/22 11:50) Troponin I [place] (09/29/22 11:50) Aspirin Chewable Tablet (Baby Aspirin Ch (09/29/22 12:00) Troponin I [place] (09/29/22 14:00) Medications Given in ED Current Medications Medications Dose Ordered Sig/Vj Route Start Time Stop Time Status Last Admin Dose Admin Aspirin 324 mg ONCE ONCE PO 09/29/22 12:00 09/29/22 12:01 DC 09/29/22 11:59 324 MG Vital Signs/I&O 09/29/22 11:45 Temp 36.4 Pulse 98 Resp 18 B/P (MAP) 133/79 (97) Pulse Ox 100 O2 Delivery Room Air Blood Pressure Mean: 97 Progress Progress Note : Progress Note Seen and evaluated. IV, EKG, chest x-ray, CBC, CMP and troponin ordered. ASA 324 mg p.o. Patient is chest pain-free currently. We will continue to monitor condition reevaluate as needed. Differential includes cardiac event, epigastric pain/reflux, ulcer disease. 1330: Patient is pain-free. We will repeat troponin at 1400. Initial troponin is negative and CBC and CMP are within normal limits. Chest x-ray shows no acute findings on my evaluation pending radiology review. Monitor patient. 1443: Repeat troponin is negative. Vital signs are normal. No acute findings overall that he feels much better. We will discharge him back to shelter with recommendation to follow-up with his doctor and with cardiology. Discharged home with return precautions. Patient and family verbalized understanding instructions and agreement with plan. Initial ECG Impression Date: Sep 29, 2022 Initial ECG Impression Time: 11:52 Initial ECG Rate: 95 Initial ECG Rhythm: Normal Sinus Comment Sinus rhythm with normal but rightward axis. Inferior Q waves noted. EKG compared to 05/12/2022 and appears quite similar. No evidence of ST elevation NM. Interpreted by me. Diagnostic Imaging Diagonstic Imaging: Xray Plain Films/CT/US/NM/MRI: chest Comments [facility], [facility]. [place], [place] NAME: MARIE BRADFORD [facility] REC#: [id number] PT STATUS: REG ER : 1970 PHYSICIAN: JAZMIN MCKENNA MD ADMIT DATE: 09/29/22/ER Signed Date of Exam:09/29/22 CHEST 1 VIEW, AP/PA ONLY INDICATION: Chest pain Frontal chest obtained at 11:47 a.m. and compared to 05/12/2022. Heart and mediastinal silhouette are normal in appearance. The lungs are clear. There is no pneumothorax or pleural fluid. IMPRESSION: Negative chest. Dictated by: Dictated on workstation # [id number] Dict: 09/29/22 1204 Trans: 09/29/22 1353 CV [id number] Interpreted by: PANKAJ OG MD Electronically signed by: PANKAJ OG MD 09/29/22 1350 Reviewed: Reviewed by Me Departure Impression Primary Impression: Chest pain Qualified Codes: R07.9 - Chest pain, unspecified Disposition: 01 HOME, SELF-CARE Condition: Improved Departure-Patient Inst. Decision time for Depature: 14:45 Referrals: BHUPENDRA ELISE DO (PCP/Family) Primary Care Physician KARISHMA BAUMAN MD Patient Instructions: Chest Pain (DC) Add. Discharge Instructions: All discharge instructions reviewed with patient and/or family. Voiced understanding. Follow-up with your doctor in a few days for recheck and further evaluation and for referral to cardiology. Alternatively, you may schedule appointment with Dr. Bauman or another uniform cap operator of your choosing for recheck and further evaluation for stress test if indicated. Return for worse pain, fever, vomiting, weakness, breathing problems, dizziness, sweating or other concerns as needed. Continue home medications as previously prescribed. Copy Copies To 1: BHUPENDRA ELISE TIMOTHY D MD Sep 29, 2022 11:57
[2022-09-29 12:00] LABS: BASOPHILS # (AUTO) 0.1 10^3/uL (0.0-0.1); BASOPHILS % (AUTO) 1 % (0-10); EOSINOPHILS # (AUTO) 0.3 10^3/uL (0.0-0.3); EOSINOPHILS % (AUTO) 3 % (0-10); HEMATOCRIT 41 % (40-54); HEMOGLOBIN 14.5 g/dL (13.3-17.7); LYMPHOCYTES # (AUTO) 2.1 10^3/uL (1.0-4.0); LYMPHOCYTES % (AUTO) 25 % (12-44); MEAN CORPUSCULAR HEMOGLOBIN 31 pg (25-34); MEAN CORPUSCULAR HGB CONC 36 g/dL (32-36); MEAN CORPUSCULAR VOLUME 88 fL (80-99); MEAN PLATELET VOLUME 8.9 fL (9.0-12.2); MONOCYTES # (AUTO) 0.7 10^3/uL (0.0-1.0); MONOCYTES % (AUTO) 8 % (0-12); NEUTROPHILS # (AUTO) 5.2 10^3/uL (1.8-7.8); NEUTROPHILS % (AUTO) 62 % (42-75); PLATELET COUNT 155 10^3/uL (130-400); WHITE BLOOD COUNT 8.3 10^3/uL (4.3-11.0)
[2022-09-29] MEDS ORDERED: ASPIRIN 81 MG CHEW (CHILDREN'S ASA) PO ONE (12:00)
--- NOTE | 2022-09-29 12:07 | Diagnostic Imaging Report ---
INDICATION: Chest pain Frontal chest obtained at 11:47 a.m. and compared to 05/12/2022. Heart and mediastinal silhouette are normal in appearance. The lungs are clear. There is no pneumothorax or pleural fluid. IMPRESSION: Negative chest. Dictated by: Dictated on workstation # [id number]
[2022-09-29 12:08] LABS: ALBUMIN 4.4 GM/DL (3.2-4.5); POTASSIUM 3.9 MMOL/L (3.6-5.0)
[2022-09-29 12:09] LABS: CALCIUM 9.5 MG/DL (8.5-10.1)
[2022-09-29 12:10] LABS: INR 1.1 (0.8-1.4); PROTHROMBIN TIME PATIENT 14.9 SEC (12.2-14.7)
[2022-09-29 12:11] LABS: TOTAL PROTEIN 7.5 GM/DL (6.4-8.2)
[2022-09-29 12:13] LABS: BILIRUBIN,TOTAL 0.5 MG/DL (0.1-1.0)
[2022-09-29 12:14] LABS: CREATININE SERUM 1.1 MG/DL (0.60-1.30)
[2022-09-29 12:17] LABS: MAGNESIUM 2.1 MG/DL (1.6-2.4)
[2022-09-29 14:54] VITALS: BP 133/79
== END 2022-09-29 14:53 | disposition home or self-care (01) ==
LOC: EDUNIT# 11:38 → ER 11:40
DX: R07.89 Other chest pain (principal); Z87.891 Personal history of nicotine dependence
CPT/HCPCS: 36415; 71045; 80053; 83735; 83874; 84484; 85025; 85610; 85730; 93005; 93041